=== PATIENT | male | born 1985 | race Caucasian/White ===

== ENCOUNTER 2016-11-14 03:23 | Emergency (ER) | payer OTHER ==
[2016-11-14] MEDS ORDERED: ACETAMINOPHEN TAB 325 MG TAB PO STA (03:48)
[2016-11-14] MEDS ORDERED: IBUPROFEN 400 MG TAB PO STA (03:48)
--- NOTE | 2016-11-14 04:20 | ED ---
Fever HPI - General Chief Complaint: Fever Stated Complaint: sun posioning Time Seen by Provider: 11/14/16 03:36 Source: patient Mode of arrival: ambulatory Limitations: no limitations - History of Present Illness Initial Comments: This patient is a 31-year-old man who presents to be evaluated for fever,chills , mild frontal headache, and body aches. These symptoms have been going on over the course of tonight. Patient is concerned that he may have "sun poisoning." He states that he had been out in the sun all day on Monday. The patient is denying other symptoms of infection, including no congestion or sore throat. No cough or dyspnea. No photophobia or neck stiffness. No abdominal pain, nausea, vomiting or diarrhea. No urinary symptoms or dysuria. No discharge. No rash. MD Complaint: fever -: hour(s) Temperature Source: subjective Associated Symptoms: chills, myalgias, headache Treatments Prior to Arrival: none - Related Data Home Medications Medication Instructions Recorded Confirmed Cetirizine HCl [Zyrtec] 10 mg PO DAILY PRN 05/30/16 11/14/16 Allergies Allergy/AdvReac Type Severity Reaction Status Date / Time No Known Allergies Allergy Verified 11/14/16 03:32 Review of Systems ROS Statement: Those systems with pertinent positive or pertinent negative responses have been documented in the HPI. ROS Other: All systems not noted in ROS Statement are negative. Constitutional: Reports: fever, chills. Denies: weakness Eyes: Denies: vision change ENT: Denies: ear pain, throat pain, congestion Respiratory: Denies: cough, dyspnea Cardiovascular: Denies: chest pain Gastrointestinal: Denies: abdominal pain, vomiting, diarrhea Genitourinary: Denies: dysuria, frequency, hematuria Musculoskeletal: Reports: myalgia Skin: Denies: rash Neurological: Reports: headache. Denies: weakness, numbness Past Medical History Past Medical History: No Reported History History of Any Multi-Drug Resistant Organisms: None Reported Past Surgical History: Tonsillectomy Past Psychological History: No Psychological Hx Reported Smoking Status: Former smoker Past Alcohol Use History: None Reported Past Drug Use History: None Reported General Exam Limitations: no limitations General appearance: alert, in no apparent distress Head exam: Present: atraumatic, normal inspection Eye exam: Present: normal appearance. Absent: scleral icterus, conjunctival injection ENT exam: Present: normal oropharynx, mucous membranes dry Neck exam: Present: normal inspection, full ROM, lymphadenopathy. Absent: tenderness, meningismus Respiratory exam: Present: normal lung sounds bilaterally. Absent: respiratory distress, wheezes, rales, rhonchi, stridor Cardiovascular Exam: Present: regular rate, normal rhythm, normal heart sounds. Absent: systolic murmur, diastolic murmur, rubs, gallop GI/Abdominal exam: Present: soft. Absent: distended, tenderness, guarding, rebound, mass Extremities exam: Present: normal inspection, normal capillary refill. Absent: pedal edema, calf tenderness Back exam: Present: normal inspection. Absent: CVA tenderness (R), CVA tenderness (L) Neurological exam: Present: alert Skin exam: Present: warm, dry, intact, normal color. Absent: rash Course Vital Signs 11/14/16 03:28 Temperature 101.9 F H Pulse Rate 105 H Respiratory 16 Rate Blood Pressure 138/85 O2 Sat by Pulse 96 Oximetry Medical Decision Making - Medical Decision Making At this point the patient does seem to have a viral syndrome and we discussed further treatment, including antipyretics and fluids. Did discuss warning signs and symptoms requiring immediate reevaluation, including signs and symptoms of but not limited to meningitis, pneumonia, appendicitis, urinary tract infection. Patient will follow-up to ensure resolution of symptoms, returning immediately if worsening in anyway - Lab Data Lab Results 11/14/16 Range/Units 03:39 Influenza Type A RNA Not Detected (Not Detectd) Influenza Type B (PCR) Not Detected (Not Detectd) Disposition Clinical Impression: Viral infection, Fever Disposition: HOME SELF-CARE Condition: Fair Instructions: Fever in Adults (ED) Referrals: None,Stated [Primary Care Provider] - 1-2 days Emily Cruz MD [REFERRING] - 1-2 days
[2016-11-14 04:35] VITALS: BP 133/67; PULSE 97; RESP 18; TEMP 101.5
== END 2016-11-14 04:31 | disposition home or self-care (01) ==
LOC: EC 03:23
DX: B34.9 Viral infection, unspecified (principal); Z87.891 Personal history of nicotine dependence
CPT/HCPCS: 87502; 99283

== ENCOUNTER 2016-11-15 10:15 | Inpatient (IN) | payer OTHER ==
[2016-11-15] MEDS ORDERED: ACETAMINOPHEN TAB 500 MG TAB PO STA (10:54)
[2016-11-15] MEDS ORDERED: IV VANCOMYCIN PER PHARMACY 1 EACH MISC MISCELLANE PRN (10:54)
[2016-11-15] MEDS ORDERED: AMPICILLIN-SULBACTAM 3 GM in SODIUM CHLORIDE 0.9% 100 ML IVPB STA (10:58)
--- NOTE | 2016-11-15 11:00 | ED ---
General Adult HPI - General Chief complaint: Fever Stated complaint: fever Time Seen by Provider: 11/15/16 10:41 Source: patient, family, RN notes reviewed Mode of arrival: ambulatory Limitations: no limitations - History of Present Illness Initial comments: Patient is a pleasant 31-year-old male presenting to emergency Department with fever. Onset was 2 days ago. Fever has been fairly constant despite ibuprofen. Patient was seen emergency department 2 days ago and told likely viral syndrome. Patient has had some nausea vomiting and diarrhea. No abdominal pain. has noticed some redness on the left upper chest that just started recently. Patient states this is very uncomfortable and hurts to move his left arm. - Related Data Home Medications Medication Instructions Recorded Confirmed Cetirizine HCl [Zyrtec] 10 mg PO DAILY PRN 05/30/16 11/15/16 Cholecalciferol [Vitamin D3] 1,000 unit PO DAILY 11/15/16 11/15/16 Ibuprofen [Motrin] 800 mg PO Q6HR PRN 11/15/16 11/15/16 Allergies Allergy/AdvReac Type Severity Reaction Status Date / Time No Known Allergies Allergy Verified 11/15/16 11:03 Review of Systems ROS Statement: Those systems with pertinent positive or pertinent negative responses have been documented in the HPI. ROS Other: All systems not noted in ROS Statement are negative. Constitutional: Reports: fever, chills Eyes: Denies: eye pain ENT: Denies: ear pain Respiratory: Denies: cough Cardiovascular: Reports: chest pain (Left upper chest, skin area) Endocrine: Reports: fatigue Gastrointestinal: Reports: nausea, vomiting, diarrhea. Denies: abdominal pain Genitourinary: Denies: dysuria Musculoskeletal: Denies: back pain Skin: Reports: rash Neurological: Denies: weakness Past Medical History Past Medical History: No Reported History History of Any Multi-Drug Resistant Organisms: None Reported Past Surgical History: Tonsillectomy Past Psychological History: No Psychological Hx Reported Smoking Status: Former smoker Past Alcohol Use History: None Reported Past Drug Use History: None Reported General Exam Limitations: no limitations General appearance: alert, in no apparent distress Head exam: Present: atraumatic Eye exam: Present: normal appearance, PERRL ENT exam: Present: normal oropharynx Neck exam: Present: normal inspection Respiratory exam: Present: normal lung sounds bilaterally, chest wall tenderness (Left upper chest wall) Cardiovascular Exam: Present: tachycardia GI/Abdominal exam: Present: soft. Absent: tenderness Extremities exam: Present: normal inspection Neurological exam: Present: alert Psychiatric exam: Present: normal affect, normal mood Skin exam: Present: rash (Left anterior upper chest wall with erythema consistent with cellulitis and swelling and tenderness.) Course Vital Signs 11/15/16 10:33 Temperature 101.5 F H Pulse Rate 122 H Respiratory 18 Rate Blood Pressure 101/63 O2 Sat by Pulse 97 Oximetry EKG Findings - EKG Comments: EKG Findings:: Sinus tachycardia 120. Normal intervals. Normal axis. Normal QRS. Nonspecific T waves. Medical Decision Making - Medical Decision Making Patient does meet severe sepsis criteria diagnosed at 12:16 PM. Case was discussed in detail with Dr. newman, who will admit for hospital call. Patient and family updated. Patient has been provided IV antibiotics. Admission orders written. - Lab Data Result diagrams: 11/15/16 11:12 11/15/16 11:12 Lab Results 11/15/16 11/15/16 11/15/16 Range/Units 11:12 11:12 11:12 WBC 11.2 H (3.8-10.6) k/uL RBC 4.71 (4.30-5.90) m/uL Hgb 13.9 (13.0-17.5) gm/dL Hct 38.3 L (39.0-53.0) % MCV 81.4 (80.0-100.0) fL MCH 29.6 (25.0-35.0) pg MCHC 36.4 (31.0-37.0) g/dL RDW 13.5 (11.5-15.5) % Plt Count 173 (150-450) k/uL Neutrophils % 92 % Lymphocytes % 3 % Monocytes % 3 % Eosinophils % 1 % Basophils % 0 % Neutrophils # 10.2 H (1.3-7.7) k/uL Lymphocytes # 0.3 L (1.0-4.8) k/uL Monocytes # 0.3 (0-1.0) k/uL Eosinophils # 0.1 (0-0.7) k/uL Basophils # 0.0 (0-0.2) k/uL PT (9.0-12.0) sec INR (<1.1) APTT (22.0-30.0) sec Sodium 132 L (137-145) mmol/L Potassium 3.6 (3.5-5.1) mmol/L Chloride 96 L (98-107) mmol/L Carbon Dioxide 20 L (22-30) mmol/L Anion Gap 16 mmol/L BUN 25 H (9-20) mg/dL Creatinine 1.57 H (0.66-1.25) mg/dL Est GFR (MDRD) Af Amer >60 (>60 ml/min/1.73 sqM) Est GFR (MDRD) Non-Af 52 (>60 ml/min/1.73 sqM) Glucose 122 H (74-99) mg/dL Plasma Lactic Acid Epifanio 2.4 H* (0.7-2.0) mmol/L Calcium 8.4 (8.4-10.2) mg/dL Total Bilirubin 3.7 H (0.2-1.3) mg/dL AST 52 (17-59) U/L ALT 76 H (21-72) U/L Alkaline Phosphatase 44 (38-126) U/L Total Protein 6.9 (6.3-8.2) g/dL Albumin 3.6 (3.5-5.0) g/dL 11/15/16 Range/Units 11:12 WBC (3.8-10.6) k/uL RBC (4.30-5.90) m/uL Hgb (13.0-17.5) gm/dL Hct (39.0-53.0) % MCV (80.0-100.0) fL MCH (25.0-35.0) pg MCHC (31.0-37.0) g/dL RDW (11.5-15.5) % Plt Count (150-450) k/uL Neutrophils % % Lymphocytes % % Monocytes % % Eosinophils % % Basophils % % Neutrophils # (1.3-7.7) k/uL Lymphocytes # (1.0-4.8) k/uL Monocytes # (0-1.0) k/uL Eosinophils # (0-0.7) k/uL Basophils # (0-0.2) k/uL PT 13.2 H (9.0-12.0) sec INR 1.3 (<1.1) APTT 26.5 (22.0-30.0) sec Sodium (137-145) mmol/L Potassium (3.5-5.1) mmol/L Chloride (98-107) mmol/L Carbon Dioxide (22-30) mmol/L Anion Gap mmol/L BUN (9-20) mg/dL Creatinine (0.66-1.25) mg/dL Est GFR (MDRD) Af Amer (>60 ml/min/1.73 sqM) Est GFR (MDRD) Non-Af (>60 ml/min/1.73 sqM) Glucose (74-99) mg/dL Plasma Lactic Acid Epifanio (0.7-2.0) mmol/L Calcium (8.4-10.2) mg/dL Total Bilirubin (0.2-1.3) mg/dL AST (17-59) U/L ALT (21-72) U/L Alkaline Phosphatase (38-126) U/L Total Protein (6.3-8.2) g/dL Albumin (3.5-5.0) g/dL - Radiology Data Radiology results: image reviewed (Chest x-ray shows no acute process) Critical Care Time Critical Care Time: Yes Total Critical Care Time: 34 Disposition Clinical Impression: Severe sepsis, Cellulitis Disposition: ADMITTED IP TO THIS [facility] Condition: Serious
[2016-11-15 11:27] LABS: Basophils % (A) 0 %; Eosinophils # (A) 0.1 k/uL (0-0.7); Eosinophils % (A) 1 %; HCT 38.3 % (39.0-53.0); HDW 3.08; HGB 13.9 gm/dL (13.0-17.5); Luc # (Auto) 0.15; Luc % (Auto) 1; Lymphocytes # (A) 0.3 k/uL (1.0-4.8); Lymphocytes % (A) 3 %; MCH 29.6 pg (25.0-35.0); MCHC 36.4 g/dL (31.0-37.0); MCV 81.4 fL (80.0-100.0); Mean Platelet Volume 6.9; Monocytes # (A) 0.3 k/uL (0-1.0); Monocytes % (A) 3 %; Neutrophils # (A) 10.2 k/uL (1.3-7.7); Neutrophils % (A) 92 %; RBC 4.71 m/uL (4.30-5.90); RDW 13.5 % (11.5-15.5); WBC 11.2 k/uL (3.8-10.6); WBC (Perox) 11.24
[2016-11-15 11:36] LABS: INR 1.3 (<1.1); Partial Thromboplastin Time 26.5 sec (22.0-30.0); Prothrombin Time 13.2 sec (9.0-12.0)
[2016-11-15 11:39] LABS: ALT 76 U/L (21-72); AST 52 U/L (17-59); Alkaline Phosphatase 44 U/L (38-126); Anion Gap 16 mmol/L; Blood Urea Nitrogen 25 mg/dL (9-20); Calcium 8.4 mg/dL (8.4-10.2); Carbon Dioxide 20 mmol/L (22-30); Chloride 96 mmol/L (98-107); Glucose 122 mg/dL (74-99); Non-African American GFR(MDRD) 52 (>60 ml/min/1.73 sqM); Potassium 3.6 mmol/L (3.5-5.1); Sodium 132 mmol/L (137-145); Total Bilirubin 3.7 mg/dL (0.2-1.3); Total Protein 6.9 g/dL (6.3-8.2)
[2016-11-15] MEDS ORDERED: VANCOMYCIN 1,750 MG in SODIUM CHLORIDE 0.9% 250 ML IVPB ONE (12:00)
--- NOTE | 2016-11-15 12:04 | XR ---
EXAMINATION TYPE: XR chest 2V DATE OF EXAM: 11/15/2016 11:55 AM COMPARISON: NONE HISTORY: Fever. TECHNIQUE: Frontal and lateral views of the chest are obtained. FINDINGS: Lateral view is suboptimal due to extremity overlap and patient's body habitus. There is n o focal air space opacity, pleural effusion, or pneumothorax seen. The cardiac silhouette size is wi thin normal limits. The osseous structures are intact. IMPRESSION: No suspicious acute air space opacity is clearly seen.
[2016-11-15] MEDS ORDERED: IBUPROFEN 400 MG TAB PO PRN (12:17)
[2016-11-15] MEDS ORDERED: NALOXONE 0.4 MG/ML 1 ML VIAL IV PRN (12:17)
[2016-11-15] MEDS: HYDROcodone/APAP 5-325MG 1 EACH TAB PO PRN ×2 (15:20→22:55)
[2016-11-15] MEDS: DOXYCYCLINE 100 MG in SODIUM CHLORIDE 0.9% 100 ML IVPB SCH ×2 (15:21→23:45)
[2016-11-15] MEDS: SODIUM CHLORIDE 0.9% 500 ML IV SCH ×2 (17:34→17:35)
[2016-11-15] MEDS: SODIUM CHLORIDE 0.9% 1,000 ML IV SCH ×4 (17:34→23:44)
--- NOTE | 2016-11-15 17:48 | P.HPIM ---
History of Present Illness H&P Date: 11/15/16 Chief Complaint: Rash on the chest This is a 31-year-old gentleman who is in good health until 4 days prior to admission. 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 Patient thereafter came to the hospital for ongoing evaluation was informed that is likely viral gastroenteritis and thereafter discharged home. Over the last few days patient continued to have chills and has been significantly weak and his oral intake has been decreased. Initial evaluation on the first ER visit patient did undergo a rapid flu which was negative At the time of the current admission and evaluation patient is complaining of this rash on his left side of the chest associated with significant tenderness and pain in his shoulder. Patient's who was at bedside stated that she also work with them and has a similar rash on her elbow and she apparently did have significant chills and fevers thereafter improved however. At the time of my evaluation patient states that he has chills generalized weakness and significant joint pains especially worse on his left shoulder Patient does state [place] multiple [place], 3 dogs cats and other farm animals. Review of Systems All systems: negative (Noted in HPI) Past Medical History Past Medical History: No Reported History History of Any Multi-Drug Resistant Organisms: None Reported Past Surgical History: Tonsillectomy Past Anesthesia/Blood Transfusion Reactions: No Reported Reaction Past Psychological History: No Psychological Hx Reported Additional Psychological History / Comment(s): Pt resides with his spouse and 3 children. He is independent. Smoking Status: Former smoker Past Alcohol Use History: None Reported Additional Past Alcohol Use History / Comment(s): Pt started smoking in 2005 and quit in 2007 Past Drug Use History: None Reported - Past Family History Father Family Medical History: Cancer Additional Family Medical History / Comment(s): Father has a pacemaker and melanoma. Mother Family Medical History: Diabetes Mellitus Medications and Allergies Home Medications Medication Instructions Recorded Confirmed Type Cetirizine HCl [Zyrtec] 10 mg PO DAILY PRN 05/30/16 11/15/16 History Cholecalciferol [Vitamin D3] 1,000 unit PO DAILY 11/15/16 11/15/16 History Ibuprofen [Motrin] 800 mg PO Q6HR PRN 11/15/16 11/15/16 History Allergies Allergy/AdvReac Type Severity Reaction Status Date / Time No Known Allergies Allergy Verified 11/15/16 11:03 Physical Exam Vitals: Vital Signs Temp Pulse Pulse Resp BP BP Pulse Ox 11/15/16 14:23 116 H 16 11/15/16 14:01 99.8 F H 116 H 16 111/63 95 11/15/16 13:06 101.2 F H 115 H 18 115/58 97 11/15/16 12:37 101.2 F H 115 H 18 115/58 97 Intake and Output 11/15/16 11/15/16 11/15/16 06:59 14:59 22:59 Other: # Voids 1 Physical exam Gen. appearance oriented 3 in no distress Neck is supple no JVD Lungs good air entry clear to auscultation no rhonchi or wheezing Heart S1-S2 heard regular rate and rhythm no murmurs appreciated Abdomen is soft nontender no organomegaly bowel sounds are intact Neurologically cranial nerves II-12 grossly intact no focal motor or sensory deficits noted Skin a large area of erythema appreciated on the left upper chest no significant fluid appreciated range of motion is affected on the left shoulder however no abnormalities on palpation of the shoulder. Results CBC & Chem 7: 11/15/16 11:12 11/15/16 11:12 Labs: Abnormal Lab Results - Last 24 Hours (Table) 11/15/16 Range/Units 14:37 Plasma Lactic Acid Epifanio 2.2 H* (0.7-2.0) mmol/L Thrombosis Risk Factor Assmnt - Choose All That Apply Any of the Below Risk Factors Present?: Yes Each Factor Represents 1 point: Obesity (BMI >25), Sepsis (< 1month) Other Risk Factors: No Other congenital or acquired thrombophilia - If yes, enter type in comment: No Thrombosis Risk Factor Assessment Total Risk Factor Score: 2 Thrombosis Risk Factor Assessment Level: Low Risk Assessment and Plan Plan: #1 fever of unknown origin #2 acute cellulitis of the left upper chest #3 acute diarrhea, attributed to viral gastroenteritis #4 acute kidney injury prerenal in etiology appears to be #5 lactic acidosis Plan Patient has significant tenderness in the left chest CPKs ordered. ESR will also be ordered. A UA needs to be done. If ESR and UA are significantly elevated. Needs to be concerning for systemic illness at this time. Patient does have lactic acidosis is likely due to dehydration will be given 2 L of crystalloids. A ID consultation will also be obtained as there is some concern over take for illnesses in this patient however the rash does not appear to be a target rash we'll start the patient on doxycycline and continue patient on Unasyn as well. Another rapid flu will also be done.
[2016-11-15] MEDS: AMPICILLIN-SULBACTAM 3 GM in SODIUM CHLORIDE 0.9% 100 ML IVPB SCH (17:51)
[2016-11-15 17:57] LABS: Amorphous Sediment,Urine Few /hpf; Appearance,Urine Turbid (Clear); Bacteria,Urine Rare /hpf; Bilirubin,Urine 1+ (Negative); Glucose,Urine (UA) 1+ (Negative); Granular Casts,Urine 21 /lpf (0); Ketones,Urine Negative (Negative); Leukocyte Esterase,Urine Negative (Negative); Mucus,Urine Rare /hpf; Nitrite,Urine Negative (Negative); Particle Count 26350; Protein,Urine 1+ (Negative); RBC,Urine 2 /hpf (0-5); Specific Gravity,Urine 1.019 (1.001-1.035); Squamous Epithelial Cell,Urine <1 /hpf (0-4); UA Billing (MACRO vs. MICRO) MICRO; Urobilinogen,Urine <2.0 mg/dL (<2.0); WBC,Urine 19 /hpf (0-5)
--- NOTE | 2016-11-15 21:46 | XR ---
EXAMINATION TYPE: XR shoulder complete LT DATE OF EXAM: 11/15/2016 8:04 PM COMPARISON: NONE HISTORY: Pain for 3 days without injury TECHNIQUE: 3 views FINDINGS: The bones and joints and soft tissues are unremarkable. IMPRESSION: No acute process. No focal findings.
[2016-11-15] MEDS: ACETAMINOPHEN TAB 325 MG TAB PO PRN (23:40)
[2016-11-16] MEDS: AMPICILLIN-SULBACTAM 3 GM in SODIUM CHLORIDE 0.9% 100 ML IVPB SCH ×2 (01:34→05:51)
[2016-11-16] MEDS ORDERED: VANCOMYCIN 1,750 MG in SODIUM CHLORIDE 0.9% 250 ML IVPB SCH (04:00)
[2016-11-16] MEDS: DOXYCYCLINE 100 MG in SODIUM CHLORIDE 0.9% 100 ML IVPB SCH (07:53)
[2016-11-16] MEDS: SODIUM CHLORIDE 0.9% 1,000 ML IV SCH ×2 (08:30→20:08)
[2016-11-16] MEDS ORDERED: RX INFO: IV CONTRAST WAS GIVEN 1 EACH MISC MISCELLANE PRN (10:10)
[2016-11-16] MEDS: ACETAMINOPHEN TAB 325 MG TAB PO PRN ×2 (10:30→17:27)
[2016-11-16 10:31] LABS: CH 29.1; CHCM 34.3; HCT 34.9 % (39.0-53.0); HDW 3.09; HGB 12.1 gm/dL (13.0-17.5); Immature Gran Flag Marked; MCH 29.6 pg (25.0-35.0); MCHC 34.6 g/dL (31.0-37.0); MCV 85.3 fL (80.0-100.0); Mean Platelet Volume 7.4; RBC 4.09 m/uL (4.30-5.90); RDW 13.6 % (11.5-15.5); WBC 7.1 k/uL (3.8-10.6); WBC (Perox) 7.86
[2016-11-16 10:39] LABS: Add Differential Manual Differential
[2016-11-16 10:43] LABS: Manual Review Performed; Nucleated Red Blood Cells 0 /100 WBC (0-0); Total Cells Counted 100
[2016-11-16 10:44] LABS: RBC Morphology Normal; Toxic Granulation Present
--- NOTE | 2016-11-16 10:49 | CONS ---
DATE OF CONSULTATION: 11/15/2016 REASON FOR CONSULTATION: Fever and a questionable viral syndrome. HISTORY OF PRESENT ILLNESS: Patient is a 31-year-old male, otherwise healthy presenting to the ER with chief complaints of fever. Apparently the patient said that he was working outside in the yard on Monday as it was a good beautiful day and has been lifting things heavy. The patient subsequently started having pain on left chest wall area and has difficulty moving his left arm. The patient also started having a fever with rigors or chills. With these symptoms, the patient presented to the [facility] ER where the patient was evaluated, has a diagnosis of possible viral syndrome. Patient was advised to take ibuprofen; however, the patient's symptoms did not improve. The patient started having nausea and vomiting and diarrhea with multiple loose stools. The patient denies having any significant abdominal pain on any blood or mucus in the stool with persistent pain. The patient presented to the [facility] ER where the patient has been evaluated by the ER physician. The patient did have a fever. He did have an elevated white count of 11.2. A chest x-ray reported negative. Left shoulder x-ray has been negative as well. The patient did receive a dose of vancomycin and Unasyn. Vancomycin was subsequently discontinued, doxycycline was added. I was asked to see the patient for further recommendation regarding antibiotic therapy. Patient noted to have erythema of the left chest wall area, which has been marked by the R.N. though the redness has improved by the time I evaluated the patient. REVIEW OF SYSTEMS: CONSTITUTIONAL: Positive for weakness along with a fever. EYES: No complaint. ENT: No complaint. RESPIRATORY: No complaint. CARDIOVASCULAR: No complaint. GENITOURINARY: No complaint. GASTROINTESTINAL: As per HPI. MUSCULOSKELETAL: As per HPI. INTEGUMENTARY: As per HPI. PSYCHOLOGIC: No complaint. ENDOCRINE: No complaint. NEUROLOGIC: No complaint. PAST MEDICAL HISTORY: No major illnesses. PAST SURGICAL HISTORY: Tonsillectomy. SOCIAL HISTORY: Did have history of smoking for a short duration. Quit a few years ago. Denies any drinking or drug use. Lives with his . FAMILY HISTORY: No significant finding noted. ALLERGIES: No known drug allergies. Medications currently include the patient is on Tylenol, [place], Unasyn, doxycycline, Motrin, Narcan. On examination, blood pressure is 111/63 with a pulse 113, temperature of 99.8. He is 95% on room air. General description is a middle-age male, lying in bed in no distress. No tachypnea or accessory muscle for respiration use. HEENT examination shows no pallor or scleral icterus. Oral mucous membrane is dry. NECK: Trachea central, no thyromegaly. LUNGS: Unlabored breathing. Clear to auscultation anteriorly. HEART: S1, S2 with regular rate and rhythm. ABDOMEN: Soft, no tenderness. No guarding or rigidity. EXTREMITIES: No edema of feet. Examination of the left chest wall, no erythema was appreciated though the area is tender to touch and the patient did have difficulty lifting his arm on the left side. NEUROLOGICAL: The patient is awake, alert and oriented. Mood and affect normal. LABS: Hemoglobin is 13.9, white count of 11.2 with a BUN of 25, creatinine is 1.57, lactic acid 2.4. Urine has been negative. Stool for C. diff was negative. Influenza A and B are negative. DIAGNOSTIC IMPRESSION AND PLAN: Patient admitted to the hospital with systemic inflammatory response syndrome/sepsis in a patient who did have a fever, elevated white count and lactic acid. He did have predominant GI symptoms which have been nonspecific enteritis. Patient did have a left chest wall pain and tenderness to touch and some erythema was noted; however, the erythema has resolved by the time I evaluated the patient. Questionable left chest wall cellulitis versus a hematoma or possible injury to the muscle while working hard on that weekend that seem to precipitated these symptoms. PLAN: 1. At this time, the patient will continue with Unasyn and doxy while waiting for the culture to finalize. 2. Obtain stool culture in addition to the C. difficile that is negative. 3. With the patient's symptom of left chest wall tenderness present, he will benefit from a CT of the chest wall to make sure there is no evidence of any hematoma or any tear to the muscles as well as the shoulder joint. 4. Will follow up on the clinical condition and culture to further adjust the medication if needed. Thank you for this consultation. Will follow this patient along with you. NISH
[2016-11-16] MEDS: CLINDAMYCIN 600 MG in DEXTROSE 5% IN WATER 50 ML IVPB SCH ×4 (10:52→15:55)
[2016-11-16 10:58] LABS: Calcium 7.7 mg/dL (8.4-10.2); Potassium 3.9 mmol/L (3.5-5.1); Total Bilirubin 2.4 mg/dL (0.2-1.3); Total Protein 5.7 g/dL (6.3-8.2)
[2016-11-16] MEDS ORDERED: SODIUM CHLORIDE 0.9% 500 ML IV ONE (11:09)
--- NOTE | 2016-11-16 11:49 | CT ---
EXAMINATION TYPE: CT chest wo con DATE OF EXAM: 11/16/2016 11:36 AM COMPARISON: NONE HISTORY: Lt chest wall hematoma vs abscess. Erythema and redness over chest. CT DLP: 842 mGycm. Automated Exposure Control for Dose Reduction was Utilized. TECHNIQUE: CT scan of the thorax is performed without IV contrast. FINDINGS: LUNGS: Exam is degraded by respiratory motion artifact makes evaluation for subcentimeter nodularity suboptimal. There is suspicious nodule in the anterior inferior medial right upper lobe measuring 1.4 x 1.2 cm that warrants follow-up. No suspicious groundglass opacity or consolidation is seen. No ple ural effusion or pneumothorax is present bilaterally. Tracheobronchial tree is patent. MEDIASTINUM: Lack of IV contrast is noted to limit evaluation for mediastinal and especially hilar ad enopathy. There are no definitive greater than 1 cm hilar or mediastinal lymph nodes. There are prom inent but subcentimeter paratracheal, subcarinal, and bilateral hilar lymph nodes. No cardiomegaly or pericardial effusion is seen. OTHER: Liver is diffusely low dense consistent with fatty infiltration. Liver is somewhat prominent. Dependent 4 mm density in gallbladder is consistent with small stone. Spleen is enlarged measuring 15 .2 cm on long axis on axial image 58. There is ill-defined fluid and fat stranding centered over the anterior left thorax beginning on axia l image 1 extending to level of diaphragm on axial image 50. This is centered over the left pectorali s muscle. Inflammatory change extends to the right of midline just past sternal level into the right supraclavicular region. There are prominent but benign-appearing reactive lymph nodes in the left axi lla noted. Some more focal ill-defined fluid adjacent adjacent to left lateral mid ribs are present. No well-formed thick-walled fluid collection or abscess is seen. IMPRESSION: 1. Marked soft tissue inflammatory change centered over the left anterior and lateral hemithorax. No well-formed thick-walled fluid collection or abscess is seen. Extension into the right chest and bila teral neck is noted. 2. Hepatosplenomegaly with fatty infiltration of liver. 3. A 1.4 x 1.2 cm nodule anterior inferior medial right upper lobe. Neoplasm cannot be excluded. PET/ CT correlation advised.
[2016-11-16] MEDS: CEFTAROLINE FOSAMIL 600 MG in SODIUM CHLORIDE 0.9% 250 ML IVPB SCH ×2 (11:56→20:08)
[2016-11-16 12:11] VITALS: BMI 36.8
[2016-11-16] MEDS: HYDROcodone/APAP 5-325MG 1 EACH TAB PO PRN ×2 (15:02→20:15)
[2016-11-16] MEDS ORDERED: SODIUM CHLORIDE 0.9% 1,000 ML IV ONE (15:10)
[2016-11-16] MEDS: ALBUTEROL NEBULIZED 2.5 MG/3 ML INHALATION PRN ×2 (15:14→20:29)
--- NOTE | 2016-11-16 16:36 | P.PN ---
Subjective This is a 31-year-old gentleman who is in good health until 4 days prior to admission. 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 Patient thereafter came to the hospital for ongoing evaluation was informed that is likely viral gastroenteritis and thereafter discharged home. Over the last few days patient continued to have chills and has been significantly weak and his oral intake has been decreased. Initial evaluation on the first ER visit patient did undergo a rapid flu which was negative At the time of the current admission and evaluation patient is complaining of this rash on his left side of the chest associated with significant tenderness and pain in his shoulder. Patient's who was at bedside stated that she also work with them and has a similar rash on her elbow and she apparently did have significant chills and fevers thereafter improved however. At the time of my evaluation patient states that he has chills generalized weakness and significant joint pains especially worse on his left shoulder Patient does state [place] with multiple [place], 3 dogs cats and other farm animals. 11/16/2016 Patient was evaluated by our infectious disease doctor as well. A CT of the chest was done there is some cellulitis without any concern for abscess. There is have hepatosplenomegaly that is also appreciated. I did discuss with the patient patient states that he states to be feeling about the same. Urine output is stable. Continues to have fevers chills no nausea vomiting. Decreased number of loose bowel movements are reported Objective - Vital Signs Vital signs: Vital Signs Temp 100.7 F H 11/16/16 15:00 Pulse 88 11/16/16 15:23 Resp 22 11/16/16 15:00 BP 114/71 11/16/16 15:00 Pulse Ox 95 11/16/16 15:00 Intake & Output 11/15/16 11/16/16 11/16/16 18:59 06:59 18:59 Intake Total 3400 240 Balance 3400 240 Weight 106.594 kg Intake: Intake, IV Titration 3400 Amount Ampicillin-Sulbactam 3 gm 2000 In Sodium Chloride 0.9% 100 ml @ 100 mls/hr IVPB Q6HR [facility] Rx#:[id number] Doxycycline 100 mg In 100 Sodium Chloride 0.9% 100 ml @ 66.67 mls/hr IVPB Q12HR [facility] Rx#:[id number] Sodium Chloride 0.9% 1, 200 000 ml @ 100 mls/hr IV . Q10H [facility] Rx#:[id number] Sodium Chloride 0.9% 500 100 ml @ 1000 mls/hr IV Q35M [facility] Rx#:[id number] Vancomycin 1,750 mg In 1000 Sodium Chloride 0.9% 250 ml @ 125 mls/hr IVPB ONCE [facility] Rx#:[id number] Oral 240 Other: Voiding Method Toilet # Voids 1 1 2 - Exam Physical exam Gen. appearance oriented 3 in no distress Neck is supple no JVD Lungs good air entry clear to auscultation no rhonchi or wheezing Heart S1-S2 heard regular rate and rhythm no murmurs appreciated Abdomen is soft nontender no organomegaly bowel sounds are intact Neurologically cranial nerves II-12 grossly intact no focal motor or sensory deficits noted Skin a diffuse tender rash is noted on the right upper chest and underneath his lower mid axillary region on the chest. This is new from last 24 hours - Labs CBC & Chem 7: 11/16/16 09:43 11/16/16 09:43 Labs: Abnormal Lab Results - Last 24 Hours (Table) 11/15/16 11/16/16 11/16/16 Range/Units 17:32 09:43 09:43 RBC 4.09 L (4.30-5.90) m/uL Hgb 12.1 L (13.0-17.5) gm/dL Hct 34.9 L (39.0-53.0) % Lymphocytes # (Manual) 0.4 L (1.0-4.8) k/uL Sodium 134 L (137-145) mmol/L Carbon Dioxide 20 L (22-30) mmol/L BUN 37 H (9-20) mg/dL Creatinine 1.93 H (0.66-1.25) mg/dL Calcium 7.7 L (8.4-10.2) mg/dL Total Bilirubin 2.4 H (0.2-1.3) mg/dL Alkaline Phosphatase 36 L (38-126) U/L Total Protein 5.7 L (6.3-8.2) g/dL Albumin 2.8 L (3.5-5.0) g/dL Urine Protein 1+ H (Negative) Urine Glucose (UA) 1+ H (Negative) Urine Blood Small H (Negative) Urine Bilirubin 1+ H (Negative) Urine WBC 19 H (0-5) /hpf Amorphous Sediment Few H (None) /hpf Urine Bacteria Rare H (None) /hpf Hyaline Casts 13 H (0-2) /lpf Urine Mucus Rare H (None) /hpf Urine Yeast (Budding) Occasional H (None) /hpf Microbiology - Last 24 Hours (Table) 11/15/16 17:32 Urine Culture - Preliminary Urine,Clean Catch 11/15/16 17:32 Stool Culture - Preliminary Stool Assessment and Plan Plan: #1 fever of unknown origin #2 acute cellulitis of the left upper chest #3 acute diarrhea, attributed to viral gastroenteritis #4 acute kidney injury prerenal in etiology appears to be #5 lactic acidosis Plan ESR is elevated. Patient's kidney function has worsened. There is proteinuria and hematuria that is noted in the UA as well. We'll obtain a urine protein to delineate amount of protein in the urine. Monitor urine output A nephrology consultation will also be obtained. Antibiotics were changed by infectious diseases. An autoimmune etiology is also to be worked up as there is no definite of reason for why the patient has this rash. tickborne illness is of the differential ecchymosis hence Borrelia IgM will also be ordered. We'll obtain a KAVON, c-ANCA and p-ANCA to ensure that this is not a systemic illness. There is no real episodes of hypotension that are noted UA does seem to show hyaline casts however there is some hematuria and proteinuria hence we' ll initiate a workup and have a manager union to evaluate the patient as well
--- NOTE | 2016-11-16 20:08 | PN ---
DATE OF SERVICE: 11/16/2016 REASON FOR FOLLOWUP: Fever and left chest wall cellulitis. INTERVAL HISTORY: The patient did have fever last night of 102.4. At the time of my evaluation this morning the patient was afebrile with temperature of 97. The patient's left chest wall redness is slightly more marked compared to yesterday. He is complaining of some dull aching pain in that site, about 3 to 4 out of 10, and no radiation. Patient denies having further nausea, vomiting or any diarrhea. Denies having any abdominal pain. On examination, blood pressure is 114/71 with a pulse of 92, temperature of 97. He is 95% on room air. General description is a young male up in the bed in no distress. HEENT EXAMINATION: No pallor or scleral icterus. LUNGS: Unlabored breathing. Clear to auscultation. HEART: S1, S2. Regular rate and rhythm. ABDOMEN: Soft. No tenderness. EXAMINATION OF THE LEFT CHEST WALL: The redness is slightly more pronounced today and is warm to touch as well as tender. No fluctuation or induration was noticed. LABS: Hemoglobin is 12.1. White count normalized to 7.1 with a BUN of 37, creatinine 1.93. Blood cultures remain negative. DIAGNOSTIC IMPRESSION AND PLAN: Patient with sepsis with likely left chest wall cellulitis with diffuse swelling and redness with a question of possible streptococcal disease. I did discuss the case in detail with the radiologist and did obtain a CT of the chest. Radiology recommended obtaining a CT with contrast; however, as his kidney function has slightly worsened, we did it without contrast. CT now showing evidence of swelling and cellulitis but no evidence of any drainable abscess. Patient's antibiotics have been adjusted to clindamycin and Teflaro to cover both for the MRSA as well as streptococcal infection to be the likely pathogen. Blood culture will be repeated and the patient will be monitored closely. Family was present at beside. Their questions and concerns were answered.
[2016-11-16 21:01] LABS: Sodium, Urine Random 28 mmol/L (30-90)
[2016-11-16] MEDS: CLINDAMYCIN 900 MG in DEXTROSE 5% IN WATER 50 ML IVPB SCH ×2 (23:20)
[2016-11-16] MEDS ORDERED: IBUPROFEN 600 MG TAB PO STA (23:36)
[2016-11-17] MEDS: SODIUM CHLORIDE 0.9% 1,000 ML IV SCH ×2 (06:16→07:19)
[2016-11-17] MEDS: CLINDAMYCIN 900 MG in DEXTROSE 5% IN WATER 50 ML IVPB SCH ×4 (07:19→14:50)
[2016-11-17] MEDS: CEFTAROLINE FOSAMIL 600 MG in SODIUM CHLORIDE 0.9% 250 ML IVPB SCH ×2 (08:17→22:22)
[2016-11-17 08:53] LABS: Basophils % (A) 0 %; CH 29.9; CHCM 34.2; Eosinophils # (A) 0.2 k/uL (0-0.7); Eosinophils % (A) 2 %; HCT 33.2 % (39.0-53.0); HGB 10.9 gm/dL (13.0-17.5); Luc # (Auto) 0.13; Luc % (Auto) 1; Lymphocytes # (A) 0.4 k/uL (1.0-4.8); Lymphocytes % (A) 4 %; MCH 28.9 pg (25.0-35.0); MCV 87.8 fL (80.0-100.0); Mean Platelet Volume 7.5; Monocytes # (A) 0.2 k/uL (0-1.0); Monocytes % (A) 1 %; Neutrophils # (A) 10.5 k/uL (1.3-7.7); Neutrophils % (A) 92 %; RBC 3.78 m/uL (4.30-5.90); RDW 14.3 % (11.5-15.5); WBC 11.5 k/uL (3.8-10.6); WBC (Perox) 11.45
[2016-11-17 09:28] LABS: ALT 64 U/L (21-72); AST 55 U/L (17-59); Alkaline Phosphatase 68 U/L (38-126); Anion Gap 11 mmol/L; Blood Urea Nitrogen 27 mg/dL (9-20); Calcium 8.2 mg/dL (8.4-10.2); Carbon Dioxide 21 mmol/L (22-30); Chloride 106 mmol/L (98-107); Glucose 122 mg/dL (74-99); Non-African American GFR(MDRD) 55 (>60 ml/min/1.73 sqM); Potassium 3.4 mmol/L (3.5-5.1); Sodium 138 mmol/L (137-145); Total Bilirubin 2.4 mg/dL (0.2-1.3); Total Protein 5.6 g/dL (6.3-8.2)
[2016-11-17] MEDS ORDERED: Potassium Replacement Protocol 1 EACH MISC MISCELLANE PRN (11:09)
[2016-11-17] MEDS: POTASSIUM CHLORIDE ER 20 MEQ TAB.ER PO SCH ×4 (11:32→18:29)
[2016-11-17] MEDS: ALBUTEROL NEBULIZED 2.5 MG/3 ML INHALATION PRN ×2 (12:05→19:33)
--- NOTE | 2016-11-17 13:42 | XR ---
EXAMINATION TYPE: XR chest 2V DATE OF EXAM: 11/17/2016 12:56 PM COMPARISON: 11/15/2016 TECHNIQUE: PA and lateral views submitted. HISTORY: Difficulty in breathing FINDINGS: The lungs are clear and there is no pneumothorax, pleural effusion, or focal pneumonia. IMPRESSION: 1. No acute process.
[2016-11-17] MEDS: HYDROcodone/APAP 5-325MG 1 EACH TAB PO PRN ×2 (14:03→20:51)
[2016-11-17 14:14] LABS: C-ANCA <1:20 Titer (<1:20); P-ANCA <1:20 Titer (<1:20)
--- NOTE | 2016-11-17 14:25 | CT ---
EXAMINATION TYPE: CT soft tissue neck wo con DATE OF EXAM: 11/17/2016 1:09 PM COMPARISON: NONE HISTORY: Swelling, redness to Lt side of chest and lower neck CT DLP: 793 mGycm CONTRAST: Patient injected with 0 mL of Omnipaque 300. TECHNIQUE: Axial images at 3 mm thick sections. Reconstructed images in the coronal plane and sagitt al plane are reviewed. FINDINGS: Limited CT sections are obtained the lung apices. The lung apices appear clear. CT neck: The torus tubarius and fossa of Rosenmuller are normal. Last Repairer Helper spaces are normal. Para nasal sinuses and mastoid air cells are clear. Parotid glands appear normal and symmetrical. Submandibular glands, are normal. There is some promi nent lymphadenopathy within the submandibular regions bilaterally. Posterior triangle small lymphaden opathy is present. There appears to be a 1.5 cm enlarged left jugulodigastric lymph node. Suspicious adenopathy within the jugulodigastric and carotid sheath regions is not otherwise evident. Parapharyn geal spaces are normal. No suspicious adenopathy is evident. The hypopharynx appears within normal limits. Vocal cord level appear symmetrical. Thyroid as visualized is normal. Soft tissue stranding is present at the level of the sternal notch. Edema infection could be consider ed. The anterior borders of the pectoralis muscles are indistinct. Some 1 cm enlarged supraclavicular adenopathy is present bilaterally. Left axillary adenopathy is partially within the [id number]. D eveloping pericardial effusion is not excluded Osseous structures are normal. IMPRESSIONS: 1. Scattered lymphadenopathy including left jugulodigastric region left axillary region and supraclav icular region. 2. Superficial subcutaneous edema and stranding. Differential diagnosis could include infection hemor rhage and edema.
[2016-11-17] MEDS: ACETAMINOPHEN TAB 325 MG TAB PO PRN (14:50)
[2016-11-17 15:20] LABS: Manual Review Performed; RBC Morphology Normal
--- NOTE | 2016-11-17 15:20 | P.NPCON ---
History of Present Illness - Reason for Consult acute renal failure - History of Present Illness Reason for consultation: Acute kidney injury History of present illness: Patient is a 31-year-old male seen in renal consultation for acute kidney injury. His creatinine peaked at 1.93 this admission and is down to 1.48 today. Patient presented with redness in his left chest and a temperature of 102F. Patient is also been taking high-dose NSAIDs for the last 3 days. He is currently maintained on IV antibiotics. A CT of the chest was done as well which did not suggest evidence of abscess. His creatinine in May 2016 was 1.3. Patient states at that time he had developed kidney stones. He denies any vomiting but states his appetite has been poor. He admits to good urine output. No hematuria or dysuria. Urinalysis suggestive of 1+ proteinuria with no significant red cells. He feels pain at the site of erythema but otherwise no other complaints at this time. Denies family history of renal disease. Vital signs are stable. General: The patient appeared well nourished and normally developed. HEENT: Head exam is unremarkable. Neck is without jugular venous distension. LUNGS: Lungs are clear to auscultation and percussion. Breath sounds decreased. Erythema of the left chest wall noted which is marked. HEART: Rate and Rhythm are regular. First and second heart sounds normal. No murmurs, rubs or gallops. ABDOMEN: Abdominal exam reveals normal bowel sounds. Non-tender and non- distended. No evidence of peritonitis. EXTREMITITES: No clubbing, cyanosis, or edema. Past Medical History Past Medical History: No Reported History History of Any Multi-Drug Resistant Organisms: None Reported Past Surgical History: Tonsillectomy Past Anesthesia/Blood Transfusion Reactions: No Reported Reaction Past Psychological History: No Psychological Hx Reported Additional Psychological History / Comment(s): Pt resides with his spouse and 3 children. He is independent. Smoking Status: Former smoker Past Alcohol Use History: None Reported Additional Past Alcohol Use History / Comment(s): Pt started smoking in 2005 and quit in 2007 Past Drug Use History: None Reported - Past Family History Father Family Medical History: Cancer Additional Family Medical History / Comment(s): Father has a pacemaker and melanoma. Mother Family Medical History: Diabetes Mellitus Medications and Allergies Home Medications Medication Instructions Recorded Confirmed Type Cetirizine HCl [Zyrtec] 10 mg PO DAILY PRN 10/24/16 04/11/17 History Cholecalciferol [Vitamin D3] 1,000 unit PO DAILY 11/15/16 11/15/16 History Ibuprofen [Motrin] 800 mg PO Q6HR PRN 11/15/16 11/15/16 History Allergies Allergy/AdvReac Type Severity Reaction Status Date / Time No Known Allergies Allergy Verified 11/15/16 11:03 Physical Exam Vitals: Vital Signs Temp Pulse Pulse Pulse Pulse Resp BP 11/17/16 12:16 100 11/17/16 12:05 104 H 11/17/16 08:00 20 11/17/16 07:00 96.8 F L 97 20 120/63 11/17/16 04:03 91 11/17/16 02:13 100.1 F H 113 H 11/16/16 23:00 101.7 F H 132 H 16 116/64 11/16/16 20:40 100 11/16/16 20:29 100 11/16/16 20:18 98.0 F 11/16/16 20:00 125 H 11/16/16 19:00 102.0 F H 11/16/16 17:28 102.9 F H 11/16/16 15:23 88 Pulse Ox 11/17/16 12:16 11/17/16 12:05 11/17/16 08:00 11/17/16 07:00 98 11/17/16 04:03 11/17/16 02:13 11/16/16 23:00 99 11/16/16 20:40 11/16/16 20:29 11/16/16 20:18 11/16/16 20:00 11/16/16 19:00 11/16/16 17:28 11/16/16 15:23 Intake and Output 11/17/16 11/17/16 11/17/16 06:59 14:59 22:59 Intake Total 240 Balance 240 Intake: Oral 240 Other: Voiding Method Toilet # Voids 2 Results - Lab Results Most recent lab results Calcium 8.2 mg/dL (8.4-10.2) L 11/17/16 08:36 11/17/16 08:36 11/17/16 08:36 Assessment and Plan Plan: Assessment: #1. Nonoliguric acute kidney injury mostly prerenal due to sepsis and use of NSAIDs. Rule out glomerulonephritis and AIN. Renal function improving with creatinine down to 1.4 today. Creatinine May 2016 was 1.3. #2. Left chest wall cellulitis. #3. Hypokalemia secondary to poor oral intake. #4. Questionable underlying chronic kidney disease. Creatinine on May 2016 was 1.3. Plan: Maintain normal saline to be run at 100 mL an hour. Replace potassium. Check magnesium level. Check serologic workup including ASO titer and ankle titers. KAVON noted to be negative. Check renal ultrasound. Antibiotics per infectious disease recommendations. Also check urine eosinophils. Avoid nephrotoxic agents and hypotensive episodes. Discontinue NSAIDs. Repeat electrolytes in the morning. Thank you for the consultation. I'll continue to follow patient with you during his hospital stay.
--- NOTE | 2016-11-17 15:25 | P.PN ---
Subjective This is a 31-year-old gentleman who is in good health until 4 days prior to admission. 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 Patient thereafter came to the hospital for ongoing evaluation was informed that is likely viral gastroenteritis and thereafter discharged home. Over the last few days patient continued to have chills and has been significantly weak and his oral intake has been decreased. Initial evaluation on the first ER visit patient did undergo a rapid flu which was negative At the time of the current admission and evaluation patient is complaining of this rash on his left side of the chest associated with significant tenderness and pain in his shoulder. Patient's who was at bedside stated that she also work with them and has a similar rash on her elbow and she apparently did have significant chills and fevers thereafter improved however. At the time of my evaluation patient states that he has chills generalized weakness and significant joint pains especially worse on his left shoulder Patient does state that [place] with multiple deer, 3 dogs cats and other farm animals. 11/16/2016 Patient was evaluated by our infectious disease doctor as well. A CT of the chest was done there is some cellulitis without any concern for abscess. There is have hepatosplenomegaly that is also appreciated. I did discuss with the patient patient states that he states to be feeling about the same. Urine output is stable. Continues to have fevers chills no nausea vomiting. Decreased number of loose bowel movements are reported 11/17/2016 Continues to have fevers. Patient states that his breathing is much more affected at this time. The rash has progressively gotten worse. States have 2-3 loose bowel movements the same period Objective - Vital Signs Vital signs: Vital Signs Temp 96.8 F L 11/17/16 07:00 Pulse 100 11/17/16 12:16 Resp 20 11/17/16 08:00 BP 120/63 11/17/16 07:00 Pulse Ox 98 11/17/16 07:00 Intake & Output 11/16/16 11/17/16 11/17/16 18:59 06:59 18:59 Intake Total 240 2420 240 Balance 240 2420 240 Weight 106.594 kg Intake: Intake, IV Titration 2200 Amount Ceftaroline Fosamil 600 250 mg In Sodium Chloride 0.9 % 250 ml @ 250 mls/hr IVPB Q12HR [facility] Rx#: [id number] Clindamycin 600 mg In 100 Dextrose 5% in Water 50 ml @ 100 mls/hr IVPB Q8HR [facility] Rx#:[id number] Doxycycline 100 mg In 100 Sodium Chloride 0.9% 100 ml @ 66.67 mls/hr IVPB Q12HR [facility] Rx#:[id number] Sodium Chloride 0.9% 1, 1000 000 ml @ 999 mls/hr IV . Q1H1M [facility] Rx#:[id number] Sodium Chloride 0.9% 500 500 ml @ 999 mls/hr IV .Q31M [facility] Rx#:[id number] Vancomycin 1,750 mg In 250 Sodium Chloride 0.9% 250 ml @ 125 mls/hr IVPB Q16H [facility] Rx#:[id number] Oral 240 220 240 Other: Voiding Method Toilet # Voids 2 2 - Exam Physical exam Gen. appearance oriented 3 in no distress Neck is supple no JVD Lungs good air entry clear to auscultation no rhonchi or wheezing Heart S1-S2 heard regular rate and rhythm no murmurs appreciated Abdomen is soft nontender no organomegaly bowel sounds are intact Neurologically cranial nerves II-12 grossly intact no focal motor or sensory deficits noted Skin a diffuse tender rash is noted on the right upper chest and underneath his lower mid axillary region on the chest has gotten worse - Labs CBC & Chem 7: 11/17/16 08:36 11/17/16 08:36 Labs: Abnormal Lab Results - Last 24 Hours (Table) 11/16/16 11/16/16 11/17/16 Range/Units 09:43 20:30 08:36 WBC 11.5 H (3.8-10.6) k/uL RBC 3.78 L (4.30-5.90) m/uL Hgb 10.9 L (13.0-17.5) gm/dL Hct 33.2 L (39.0-53.0) % Neutrophils # 10.5 H (1.3-7.7) k/uL Lymphocytes # 0.4 L (1.0-4.8) k/uL Potassium (3.5-5.1) mmol/L Carbon Dioxide (22-30) mmol/L BUN (9-20) mg/dL Creatinine (0.66-1.25) mg/dL Glucose (74-99) mg/dL Calcium (8.4-10.2) mg/dL Total Bilirubin (0.2-1.3) mg/dL C-Reactive Protein 544.9 H (<10.0) mg/L Total Protein (6.3-8.2) g/dL Albumin (3.5-5.0) g/dL Ur Random Sodium 28 L (30-90) mmol/L 11/17/16 Range/Units 08:36 WBC (3.8-10.6) k/uL RBC (4.30-5.90) m/uL Hgb (13.0-17.5) gm/dL Hct (39.0-53.0) % Neutrophils # (1.3-7.7) k/uL Lymphocytes # (1.0-4.8) k/uL Potassium 3.4 L (3.5-5.1) mmol/L Carbon Dioxide 21 L (22-30) mmol/L BUN 27 H (9-20) mg/dL Creatinine 1.48 H (0.66-1.25) mg/dL Glucose 122 H (74-99) mg/dL Calcium 8.2 L (8.4-10.2) mg/dL Total Bilirubin 2.4 H (0.2-1.3) mg/dL C-Reactive Protein (<10.0) mg/L Total Protein 5.6 L (6.3-8.2) g/dL Albumin 2.6 L (3.5-5.0) g/dL Ur Random Sodium (30-90) mmol/L Microbiology - Last 24 Hours (Table) 11/15/16 17:32 Urine Culture - Final Urine,Clean Catch 11/15/16 14:37 Blood Culture - Preliminary Blood No Growth after 24 hours Assessment and Plan Plan: #1 fever of unknown origin #2 acute cellulitis of the left upper chest #3 acute diarrhea, attributed to viral gastroenteritis #4 acute kidney injury prerenal in etiology appears to be #5 lactic acidosis #6 erythema migrans #7 acute hypoxic respiratory failure secondary to chest wall infection #8 right upper lobe mass #9.Diffuse Lymphadenopathy Plan Continue ongoing care. Discussed with the family that further lab testing for autoimmune disease R in progress. We'll need an consult recommendations from her lpc as well at this time. Renal function appears to be improved. Breathing appears to be more from chest wall tenderness. A CT of the neck will be done. Repeat chest x-ray will be ordered. Continue IV fluids. CRP is noted and is significantly elevated. A rheumatoid factor will also be obtained at this time. If patient continues to worsen may need to consider referral to an higher level of care as most of the autoimmune workup turnaround takes longer
[2016-11-17 16:27] LABS: Magnesium 2.3 mg/dL (1.6-2.3)
[2016-11-17 16:29] LABS: Rheumatoid Factor, Qnt 17 IU/mL (<12)
--- NOTE | 2016-11-17 16:47 | PN ---
DATE OF SERVICE: 11/17/2016 Reason for follow-up is fever and left chest wall cellulitis. HISTORY OF PRESENT ILLNESS: The patient did have another fever last night of 101.7. However, the patient is afebrile since then. The left chest wall swelling and redness slightly improved. The patient has some mild shortness of breath, but denies having any difficulty swallowing. No dysphagia and denies having any difficulty taking a deep breath. No cough. No abdominal pain. No nausea. No vomiting or any diarrhea. On examination, blood pressure is 120/63 with a pulse of 97, temperature 96.8. He is 98% on 2 liters nasal cannula. General description is a young male, lying in bed in no distress. HEENT EXAMINATION: No pallor or scleral icterus. Oral mucosa is dry. Oral cavity did not show any evidence of bad teeth or dentition. NECK: Trachea central. There is no thyromegaly. LUNGS: Unlabored breathing. Clear to auscultation. HEART: S1, S2. Regular rate and rhythm. ABDOMEN: Soft. No tenderness. Left-sided chest wall redness has slightly decreased. web machine tender to touch though. EXTREMITIES: No edema of the feet. LABS: Hemoglobin is 10.9, white count 11.5, BUN of 27 and creatinine is down to 1.48. His lactic acid is 1.5 normal. KAVON was negative. Blood culture has been negative so far. The patient did have a CT of the soft tissue of the neck which was reviewed with the radiologist and did show some scattered lymphadenopathy, superficial subcutaneous edema and stranding. The differential of infection, hemorrhage or edema. There was no compromise of the airway. I also reviewed his CT of the chest with Dr. Allred, which did show some subcutaneous inflammation and edema of the muscle but no evidence of any abscess formation. DIAGNOSTIC IMPRESSION AND PLAN: Patient with fever in a patient who did have swelling and redness of the left chest wall and the patient's symptoms started after he was working very hard in his yard taking the fence out and moving things around. Initial concern was possible muscle trauma from extensive work and there was some swelling of the muscle noticed on the left chest wall with subsequently inflamatory changes secondary to the same versus any new trauma. There is no skin breakdown. No evidence of any inflammation in the neck area. At this time we will keep the patient on Teflaro and clindamycin. Will re-evaluate the patient tomorrow. I discussed the case entirely with the family present at the bedside as well as with the attending physician. Continue supportive care. TRINID
[2016-11-17 18:04] LABS: Hepatitis B Surface Ag Index 0.06
[2016-11-17 18:10] LABS: Hepatitis B Core IgM Index 0.04
[2016-11-17] MEDS ORDERED: methylPREDNISolone SOD SUCCI 125 MG/2 ML VIAL IV STA (18:12)
[2016-11-17 18:22] LABS: Hepatitis C Virus IgG Index 0.02
[2016-11-17 18:23] LABS: Hepatitis C Virus IgG Ab Negative (Negative)
--- NOTE | 2016-11-17 18:46 | P.CONS ---
History of Present Illness - Reason for Consult Consult date: 11/17/16 Rule out autoimmune etiology for patient's symptoms Requesting physician: Misael Lee - Chief Complaint Rash and right shoulder pain/stiffness - History of Present Illness Patient is a pleasant 31-year-old male who has been consulted by rheumatology services to rule out possible autoimmune etiology of his symptoms. Patient reports that he was outside this past Monday doing some yard work with his . Patient mentions that he owns [address] land and there are various animals such as deer, dogs, cats and other animals in the area. He states that Monday morning he woke up and felt sore, assuming that this was due to the yard work that he had on the previous day. Patient states that he took ibuprofen, however his soreness became worse throughout the day. Patient states that Monday night his left arm started to bother him and he also had a fever at 102 F and he was up all night with diarrhea. Patient then went to the ER and after his flu swab was found to be negative, he was sent home and told to take ibuprofen and return if his symptoms worsened. Patient mentions that his symptoms did become worse and Monday night he had a fever, diarrhea, and vomiting. Patient return to the ER and he was admitted to the hospital for cellulitis. At that time, patient was unable to move his left shoulder due to stiffness and pain. Patient mentions that since Monday, the rash on his left shoulder has spread to his left axillary region and across his chest and he has also been feeling feverish, short of breath, and nauseous. Pt. does admit that his did have a similar rash on her right elbow over the weekend that seemed to subside on its own. Pt.'s father was at pt.'s bedside this evening. Upon speaking with the patient today, he denies any recent travel history, recollection of any insect bite, illicit drug use, dental abscess, or additional medications or medical issues that might cause him to be immunocompromised. He also denies any history of a prior episode resembling his current symptoms. Review of Systems All systems: negative Constitutional: Reports chills, Reports fever, Reports poor appetite, Reports weakness Eyes: denies blurred vision, denies pain Ears, nose, mouth and throat: Reports headache, Denies sore throat Cardiovascular: Reports shortness of breath, Denies chest pain Respiratory: Denies cough Gastrointestinal: Reports diarrhea, Reports nausea, Denies abdominal pain, Denies vomiting Musculoskeletal: Reports neck pain (left sided ), Reports neck stiffness (left sided) Musculoskeletal: left: shoulder pain Integumentary: Reports rash, Denies pruritus Neurological: Reports weakness, Denies numbness Psychiatric: Denies anxiety, Denies depression Endocrine: Denies fatigue, Denies weight change Past Medical History Past Medical History: No Reported History History of Any Multi-Drug Resistant Organisms: None Reported Past Surgical History: Tonsillectomy Past Anesthesia/Blood Transfusion Reactions: No Reported Reaction Past Psychological History: No Psychological Hx Reported Additional Psychological History / Comment(s): Pt resides with his spouse and 3 children. He is independent. Smoking Status: Former smoker Past Alcohol Use History: None Reported Additional Past Alcohol Use History / Comment(s): Pt started smoking in 2005 and quit in 2007 Past Drug Use History: None Reported - Past Family History Father Family Medical History: Cancer Additional Family Medical History / Comment(s): Father has a pacemaker and melanoma. Denies any family history of autoimmune conditions. Mother Family Medical History: Diabetes Mellitus Medications and Allergies Home Medications Medication Instructions Recorded Confirmed Type Cetirizine HCl [Zyrtec] 10 mg PO DAILY PRN 05/30/16 11/15/16 History Cholecalciferol [Vitamin D3] 1,000 unit PO DAILY 11/15/16 11/15/16 History Ibuprofen [Motrin] 800 mg PO Q6HR PRN 11/15/16 11/15/16 History Allergies Allergy/AdvReac Type Severity Reaction Status Date / Time No Known Allergies Allergy Verified 11/15/16 11:03 Physical Exam Vitals: Vital Signs Temp Pulse Pulse Pulse Pulse Resp BP 11/17/16 16:00 20 11/17/16 15:00 101.8 F H 116 H 20 135/75 11/17/16 12:16 100 11/17/16 12:05 104 H 11/17/16 08:00 20 11/17/16 07:00 96.8 F L 97 20 120/63 11/17/16 04:03 91 11/17/16 02:13 100.1 F H 113 H 11/16/16 23:00 101.7 F H 132 H 16 116/64 11/16/16 20:40 100 11/16/16 20:29 100 11/16/16 20:18 98.0 F 11/16/16 20:00 125 H 11/16/16 19:00 102.0 F H Pulse Ox 11/17/16 16:00 11/17/16 15:00 100 11/17/16 12:16 11/17/16 12:05 11/17/16 08:00 11/17/16 07:00 98 11/17/16 04:03 11/17/16 02:13 11/16/16 23:00 99 11/16/16 20:40 11/16/16 20:29 11/16/16 20:18 11/16/16 20:00 11/16/16 19:00 Intake and Output 11/17/16 11/17/16 11/17/16 06:59 14:59 22:59 Intake Total 240 Balance 240 Intake: Oral 240 Other: Voiding Method Toilet Toilet # Voids 2 2 - Constitutional General appearance: no acute distress - EENT Eyes: EOMI - Neck Neck: normal ROM (limited ROM ) - Respiratory Respiratory: bilateral: CTA - Cardiovascular Rhythm: regular Heart sounds: normal: S1, S2 - Gastrointestinal General gastrointestinal: organomegaly, soft, no tenderness - Integumentary Integumentary: cellulitis (anterior chest wall extending into left shoulder and left axillary region) - Neurologic Neurologic: CNII-XII intact - Musculoskeletal Musculoskeletal: generalized weakness - Psychiatric Psychiatric: A&O x's 3 Results CBC & Chem 7: 11/17/16 08:36 11/17/16 15:52 Labs: Abnormal Lab Results - Last 24 Hours (Table) 11/16/16 11/16/16 11/17/16 Range/Units 09:43 20:30 08:36 WBC 11.5 H (3.8-10.6) k/uL RBC 3.78 L (4.30-5.90) m/uL Hgb 10.9 L (13.0-17.5) gm/dL Hct 33.2 L (39.0-53.0) % Neutrophils # 10.5 H (1.3-7.7) k/uL Lymphocytes # 0.4 L (1.0-4.8) k/uL Potassium (3.5-5.1) mmol/L Carbon Dioxide (22-30) mmol/L BUN (9-20) mg/dL Creatinine (0.66-1.25) mg/dL Glucose (74-99) mg/dL Calcium (8.4-10.2) mg/dL Ferritin (18-464) ng/mL Total Bilirubin (0.2-1.3) mg/dL C-Reactive Protein 544.9 H (<10.0) mg/L Total Protein (6.3-8.2) g/dL Albumin (3.5-5.0) g/dL Ur Random Sodium 28 L (30-90) mmol/L Rheumatoid Factor (<12) IU/mL 11/17/16 11/17/16 11/17/16 Range/Units 08:36 15:52 15:52 WBC (3.8-10.6) k/uL RBC (4.30-5.90) m/uL Hgb (13.0-17.5) gm/dL Hct (39.0-53.0) % Neutrophils # (1.3-7.7) k/uL Lymphocytes # (1.0-4.8) k/uL Potassium 3.4 L 3.3 L (3.5-5.1) mmol/L Carbon Dioxide 21 L (22-30) mmol/L BUN 27 H (9-20) mg/dL Creatinine 1.48 H (0.66-1.25) mg/dL Glucose 122 H (74-99) mg/dL Calcium 8.2 L (8.4-10.2) mg/dL Ferritin 928 H (18-464) ng/mL Total Bilirubin 2.4 H (0.2-1.3) mg/dL C-Reactive Protein (<10.0) mg/L Total Protein 5.6 L (6.3-8.2) g/dL Albumin 2.6 L (3.5-5.0) g/dL Ur Random Sodium (30-90) mmol/L Rheumatoid Factor 17 H (<12) IU/mL Microbiology - Last 24 Hours (Table) 11/15/16 14:37 Blood Culture - Preliminary Blood No Growth after 48 hours 11/15/16 17:32 Urine Culture - Final Urine,Clean Catch Assessment and Plan Plan: 1. fever of unknown origin 2. cellulitis 3. acute diarrhea 4. left shoulder pain 5. lymphadenopathy 6. acute kidney injury Prior to seeing the patient today, he did have some autoimmune labs drawn including an ANCA panel, KAVON, and a rheumatoid factor. His rheumatoid factor was mildly positive at 17 and his ANCA panel and KAVON were found to be negative. Pt. also had a chest CT done that did not reveal any concerns for possible connective tissue disease or vasculitis. It did however reveal hepatosplenomegaly, cellulitis, and a suspicious lung nodule. Pt.'s extremely elevated CRP and hematology panel do point more towards an acute infectious etiology. Based on patient's history and physical examination, an autoimmune condition seems unlikely at this time and his symptoms seem to be infectious in nature. Dr. Marte did come in and speak with the patient and she does agree that infection is most likely the cause since patient's presentation is unusual for rheumatoid arthritis or vasculitis. Today on physical examination, no additional joint pain/swelling was noted other than in patient's left shoulder. Patient's rash did not appear to be concerning for vasculitis or additional connective tissue disease and it appeared more consistent with cellulitis. At this time, no additional serologies are necessary. Dr. Marte also did speak with Dr. Lee who agreed that a short course of steroids for symptomatic relief would benefit the patient. Patient will be given a bolus of Solu-Medrol 120 mg he will then receive 60 mg every 6 hours. Adjustments to this will be made by Dr. Lee. The patient was seen and examined by Dr. Marte and pt.'s plan of care was discussed with and agreed upon by Dr. Marte. Time with Patient: Greater than 30
[2016-11-17 22:16] LABS: Glucose,Whole Blood 146 mg/dL (75-99)
[2016-11-17] MEDS: INSULIN LISPRO (humaLOG) 300 UNIT/3 ML VIAL SQ SCH (22:21)
[2016-11-18] MEDS ORDERED: DEXTROSE 5% IN WATER 50 ML BAG ONE (01:05)
[2016-11-18] MEDS ORDERED: CLINDAMYCIN 150 MG/ML 6 ML VIAL ONE (01:05)
[2016-11-18] MEDS ORDERED: methylPREDNISolone SOD SUCCI 125 MG/2 ML VIAL ONE (01:05)
[2016-11-18] MEDS: methylPREDNISolone SOD SUCCI 125 MG/2 ML VIAL IV SCH ×3 (06:07→12:39)
[2016-11-18] MEDS: CLINDAMYCIN 900 MG in DEXTROSE 5% IN WATER 50 ML IVPB SCH ×8 (06:07→23:46)
[2016-11-18] MEDS: SODIUM CHLORIDE 0.9% 1,000 ML IV SCH ×3 (06:17→20:43)
[2016-11-18] MEDS: ALBUTEROL NEBULIZED 2.5 MG/3 ML INHALATION PRN ×4 (07:20→20:56)
[2016-11-18 09:12] LABS: Basophils % (A) 0 %; CH 29.6; CHCM 34.7; Eosinophils % (A) 0 %; HCT 32.4 % (39.0-53.0); HDW 3.32; HGB 10.8 gm/dL (13.0-17.5); Luc # (Auto) 0.14; Luc % (Auto) 1; Lymphocytes # (A) 0.8 k/uL (1.0-4.8); Lymphocytes % (A) 6 %; MCH 28.6 pg (25.0-35.0); MCHC 33.2 g/dL (31.0-37.0); Mean Platelet Volume 7.3; Monocytes # (A) 0.3 k/uL (0-1.0); Monocytes % (A) 2 %; Neutrophils # (A) 13.6 k/uL (1.3-7.7); Neutrophils % (A) 92 %; RBC 3.77 m/uL (4.30-5.90); RDW 14.2 % (11.5-15.5); WBC 14.8 k/uL (3.8-10.6); WBC (Perox) 14.75
[2016-11-18] MEDS: CEFTAROLINE FOSAMIL 600 MG in SODIUM CHLORIDE 0.9% 250 ML IVPB SCH ×2 (09:12→20:42)
[2016-11-18] MEDS: INSULIN LISPRO (humaLOG) 300 UNIT/3 ML VIAL SQ SCH ×5 (09:14→21:41)
--- NOTE | 2016-11-18 09:24 | US ---
EXAMINATION TYPE: US abdomen complete DATE OF EXAM: 11/18/2016 8:32 AM COMPARISON: CT on PACS CLINICAL HISTORY: splenomegaly. EXAM MEASUREMENTS: Liver Length: 18.7 cm Gallbladder Wall: 0.3 cm CBD: 0.4 cm Spleen: 12.4 cm Right Kidney: 14.6 x 5.8 x 5.7 cm Left Kidney: 16.1 x 6.3 x 6.1 cm Pancreas: Tail obscured by overlying bowel gas Liver: Increased attenuation, areas of focal sparing near GB. Large in size. Gallbladder: Mobile gallstones Evidence for sonographic Caballero's sign: no CBD: wnl Spleen: large in size Right Kidney: Large in size. Hypoechoic area lateral, lower pole = 2.5 x 2.0 x 2.1 cm ? cyst Left Kidney: wnl, Large in size Upper IVC: wnl Abd Aorta: wnl Limited views of the pancreas are normal. The liver is enlarged measuring 18.7 cm. There are stones within the gallbladder. The gallbladder wall measures 3 mm. The distal common hepati c duct measures 4 mm. The spleen is normal in size. The left kidney is normal. There is a 2.5 cm hypoechoic lesion in the upper pole of the right kidney. This does not meet the requirements of a simple cyst. A CT scan without contrast dated 05/30/2016 sh owed this vague area be solid. Visualized portions of aorta and IVC are unremarkable. IMPRESSION: 1. CHOLELITHIASIS. 2. 2.5 CM LESION LATERALLY WITHIN THE RIGHT KIDNEY DOES NOT REPRESENT A SIMPLE CYST. FURTHER IMAGING WITH POSTCONTRAST CT OR MR WOULD BE SUGGESTED. 3. HEPATOMEGALY.
[2016-11-18 09:27] LABS: Glucose,Whole Blood 143 mg/dL (75-99)
[2016-11-18 09:29] LABS: ALT 68 U/L (21-72); AST 64 U/L (17-59); Alkaline Phosphatase 78 U/L (38-126); Anion Gap 12 mmol/L; Blood Urea Nitrogen 29 mg/dL (9-20); Calcium 8.7 mg/dL (8.4-10.2); Carbon Dioxide 19 mmol/L (22-30); Chloride 108 mmol/L (98-107); Glucose 152 mg/dL (74-99); Magnesium 2.4 mg/dL (1.6-2.3); Non-African American GFR(MDRD) >60 (>60 ml/min/1.73 sqM); Potassium 3.8 mmol/L (3.5-5.1); Sodium 139 mmol/L (137-145); Total Bilirubin 1.6 mg/dL (0.2-1.3); Total Protein 5.8 g/dL (6.3-8.2)
--- NOTE | 2016-11-18 11:39 | PN ---
Patient is seen for followup for acute kidney injury secondary to NSAIDs and some degree of hypovolemia as well. Patient has been maintained on IV fluids. His renal function has improved with actually this morning his creatinine is down to 1.16. Patient is comfortable. He states he is feeling better. On examination, blood pressure is 142/84, heart rate 88 per minute. He is afebrile. Examination of the heart, S1 and S2. Examination of the lungs, bilateral breath sounds are heard. Abdomen is soft, nontender. Examination of the lower extremities shows no significant edema. Labs show sodium 139, potassium 3.8, BUN 29, serum creatinine 1.16. Hemoglobin 10.8 g/dL. ASSESSMENT: 1. Acute kidney injury secondary to hypovolemia and also from NSAIDs, currently significantly improved. Continue with IV fluids. 2. Left chest wall cellulitis, maintained on clindamycin. 3. History of nephrolithiasis. 4. Hypokalemia, status post replacement. 5. Microscopic hematuria, possibly related to the NSAIDs and recent acute kidney injury. Will follow up as outpatient. PLAN: Continue IV fluids. Patient is advised to continue to avoid the use of NSAIDs, even as outpatient. His renal function is currently significantly improved. We will see him for followup as outpatient.
[2016-11-18 11:49] LABS: Glucose,Whole Blood 148 mg/dL (75-99)
[2016-11-18 12:05] LABS: Hemoglobin A1C 5.1 % (4.2-6.1)
[2016-11-18] MEDS: HYDROcodone/APAP 5-325MG 1 EACH TAB PO PRN (12:45)
[2016-11-18 17:06] LABS: Glucose,Whole Blood 183 mg/dL (75-99)
--- NOTE | 2016-11-18 17:08 | PN ---
DATE OF SERVICE: 11/18/2016 REASON FOR FOLLOWUP: Left chest wall cellulitis with sepsis. INTERVAL HISTORY: The patient overall feels better and has improved. Last fever he had was yesterday afternoon around 3. No fever recorded since then. In the meantime, the patient has been evaluated by Rheumatology. They have ruled out any rheumatologic disorder but advised steroids. The patient is currently getting Solu-Medrol 60 q.6. Patient's left chest wall swelling and redness have slightly improved. Pain is improved. Still complaining of some difficulty breathing and very minimal dry cough. No abdominal pain. Did have about 3 loose stools since morning. On examination, blood pressure 142/84 with a pulse of 88, temperature 98.6. He is 97% on 2 L nasal cannula. General description is a young male lying in bed in no distress. HEENT EXAMINATION: Slight pallor. No scleral icterus. Oral mucous membrane dry. LUNGS: Unlabored breathing. Clear to auscultation. No wheeze or crackle. HEART: S1, S2. Regular rate and rhythm. ABDOMEN: Soft. No tenderness. EXTREMITIES: No edema of feet. EXAMINATION OF LEFT CHEST WALL: Overall swelling and redness have decreased in intensity. Swelling and redness around the neck area have resolved compared to yesterday. LABS: Hemoglobin is 10.8, white count of 14.8 with a BUN of 29, creatinine 1.16. Blood culture remains negative. DIAGNOSTIC IMPRESSION AND PLAN: Patient with sepsis. Source is likely left chest wall cellulitis in a patient who did have an extensive workup for other etiologies that was negative. No evidence of any abscess formation. He is responding to the Teflaro and clindamycin. That will be continued at this point. Recommend cutting back on steroids in view of the active infection to prevent it from getting any worse. This was discussed in detail with the attending physician, and maybe try Toradol for the pain and anti-inflammatory properties with consent of Nephrology. His was present at beside. Questions and concerns were answered. As far as his diarrhea, the patient will begin Questran and has been encouraged to take yogurt with each meal. If diarrhea persists or worsens, will check a stool for C difficile and treat if positive. NISH
[2016-11-18] MEDS: KETOROLAC 30 MG/ML 1 ML VIAL IVP SCH ×2 (17:26→23:46)
[2016-11-18] MEDS: CHOLESTYRAMINE (WITH SUGAR) 4 GM PACKET PO SCH (17:29)
--- NOTE | 2016-11-18 18:01 | P.PN ---
Subjective This is a 31-year-old gentleman who is in good health until 4 days prior to admission. 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 Patient thereafter came to the hospital for ongoing evaluation was informed that is likely viral gastroenteritis and thereafter discharged home. Over the last few days patient continued to have chills and has been significantly weak and his oral intake has been decreased. Initial evaluation on the first ER visit patient did undergo a rapid flu which was negative At the time of the current admission and evaluation patient is complaining of this rash on his left side of the chest associated with significant tenderness and pain in his shoulder. Patient's who was at bedside stated that she also work with them and has a similar rash on her elbow and she apparently did have significant chills and fevers thereafter improved however. At the time of my evaluation patient states that he has chills generalized weakness and significant joint pains especially worse on his left shoulder Patient does state [place], 3 dogs cats and other farm animals. 11/16/2016 Patient was evaluated by our infectious disease doctor as well. A CT of the chest was done there is some cellulitis without any concern for abscess. There is have hepatosplenomegaly that is also appreciated. I did discuss with the patient patient states that he states to be feeling about the same. Urine output is stable. Continues to have fevers chills no nausea vomiting. Decreased number of loose bowel movements are reported 11/17/2016 Continues to have fevers. Patient states that his breathing is much more affected at this time. The rash has progressively gotten worse. States have 2-3 loose bowel movements the same period 11/18/16 states to be doing well no fevers, chills. breathing is improved states to have a cough slept well overnight. Objective - Vital Signs Vital signs: Vital Signs Temp 97.6 F 11/18/16 15:00 Pulse 72 11/18/16 17:40 Resp 26 H 11/18/16 17:40 BP 146/101 11/18/16 15:00 Pulse Ox 97 11/18/16 15:15 Intake & Output 11/17/16 11/18/16 11/18/16 18:59 06:59 18:59 Intake Total 240 160 400 Balance 240 160 400 Intake: Oral 240 160 400 Other: Voiding Method Toilet Toilet Toilet # Voids 2 1 3 # Bowel Movements 0 - Exam Physical exam Gen. appearance oriented 3 in no distress Neck is supple no JVD Lungs good air entry clear to auscultation no rhonchi or wheezing Heart S1-S2 heard regular rate and rhythm no murmurs appreciated Abdomen is soft nontender no organomegaly bowel sounds are intact Neurologically cranial nerves II-12 grossly intact no focal motor or sensory deficits noted Skin a diffuse tender rash is noted on the right upper chest and underneath his lower mid axillary region on the chest , improved, less tender to touch.. - Labs CBC & Chem 7: 11/18/16 08:41 11/18/16 08:41 Labs: Abnormal Lab Results - Last 24 Hours (Table) 11/17/16 11/17/16 11/17/16 Range/Units 08:36 15:52 22:12 WBC 11.5 H (3.8-10.6) k/uL RBC 3.78 L (4.30-5.90) m/uL Hgb 10.9 L (13.0-17.5) gm/dL Hct 33.2 L (39.0-53.0) % Neutrophils # 10.5 H (1.3-7.7) k/uL Lymphocytes # 0.4 L (1.0-4.8) k/uL Chloride (98-107) mmol/L Carbon Dioxide (22-30) mmol/L BUN (9-20) mg/dL Glucose (74-99) mg/dL POC Glucose (mg/dL) 146 H (75-99) mg/dL Magnesium (1.6-2.3) mg/dL Ferritin 928 H (18-464) ng/mL Total Bilirubin (0.2-1.3) mg/dL AST (17-59) U/L Creatine Kinase (55-170) U/L Total Protein (6.3-8.2) g/dL Albumin (3.5-5.0) g/dL Rheumatoid Factor 17 H (<12) IU/mL 11/17/16 11/18/16 11/18/16 Range/Units 22:15 08:41 08:41 WBC 14.8 H (3.8-10.6) k/uL RBC 3.77 L (4.30-5.90) m/uL Hgb 10.8 L (13.0-17.5) gm/dL Hct 32.4 L (39.0-53.0) % Neutrophils # 13.6 H (1.3-7.7) k/uL Lymphocytes # 0.8 L (1.0-4.8) k/uL Chloride 108 H (98-107) mmol/L Carbon Dioxide 19 L (22-30) mmol/L BUN 29 H (9-20) mg/dL Glucose 152 H (74-99) mg/dL POC Glucose (mg/dL) (75-99) mg/dL Magnesium 2.4 H (1.6-2.3) mg/dL Ferritin (18-464) ng/mL Total Bilirubin 1.6 H (0.2-1.3) mg/dL AST 64 H (17-59) U/L Creatine Kinase 49 L (55-170) U/L Total Protein 5.8 L (6.3-8.2) g/dL Albumin 2.7 L (3.5-5.0) g/dL Rheumatoid Factor (<12) IU/mL 11/18/16 11/18/16 11/18/16 Range/Units 09:25 11:45 17:01 WBC (3.8-10.6) k/uL RBC (4.30-5.90) m/uL Hgb (13.0-17.5) gm/dL Hct (39.0-53.0) % Neutrophils # (1.3-7.7) k/uL Lymphocytes # (1.0-4.8) k/uL Chloride (98-107) mmol/L Carbon Dioxide (22-30) mmol/L BUN (9-20) mg/dL Glucose (74-99) mg/dL POC Glucose (mg/dL) 143 H 148 H 183 H (75-99) mg/dL Magnesium (1.6-2.3) mg/dL Ferritin (18-464) ng/mL Total Bilirubin (0.2-1.3) mg/dL AST (17-59) U/L Creatine Kinase (55-170) U/L Total Protein (6.3-8.2) g/dL Albumin (3.5-5.0) g/dL Rheumatoid Factor (<12) IU/mL Microbiology - Last 24 Hours (Table) 11/15/16 14:37 Blood Culture - Preliminary Blood No Growth after 72 hours 11/15/16 17:32 Stool Culture - Final Stool 11/16/16 20:22 Blood Culture - Preliminary Blood No Growth after 24 hours 11/16/16 20:04 Blood Culture - Preliminary Blood No Growth after 24 hours Assessment and Plan Plan: #1 fever of unknown origin #2 acute cellulitis of the left upper chest #3 acute diarrhea, attributed to viral gastroenteritis #4 acute kidney injury prerenal in etiology appears to be #5 lactic acidosis #6 erythema migrans #7 acute hypoxic respiratory failure secondary to chest wall infection #8 right upper lobe mass #9.Diffuse Lymphadenopathy Plan results for autoimmune workup are negative burst of steroids were given pt improved add toradol , moniter renal function will likely obtain a ct chest with contrast to eval the nodule in the right upper lobe if renal function is stable renal function is improving overall improvement encourage ambulation IS
[2016-11-18 21:35] LABS: Glucose,Whole Blood 148 mg/dL (75-99)
[2016-11-19] MEDS: SODIUM CHLORIDE 0.9% 1,000 ML IV SCH ×2 (06:04→17:17)
[2016-11-19] MEDS: KETOROLAC 30 MG/ML 1 ML VIAL IVP SCH ×4 (06:04→23:55)
[2016-11-19] MEDS: ALBUTEROL NEBULIZED 2.5 MG/3 ML INHALATION PRN ×3 (06:50→20:50)
[2016-11-19 07:31] LABS: Glucose,Whole Blood 118 mg/dL (75-99)
[2016-11-19] MEDS: INSULIN LISPRO (humaLOG) 300 UNIT/3 ML VIAL SQ SCH ×4 (08:01→21:15)
[2016-11-19] MEDS: CHOLESTYRAMINE (WITH SUGAR) 4 GM PACKET PO SCH ×2 (08:22→17:17)
[2016-11-19] MEDS: CLINDAMYCIN 900 MG in DEXTROSE 5% IN WATER 50 ML IVPB SCH ×6 (08:22→23:56)
[2016-11-19] MEDS: HYDROcodone/APAP 5-325MG 1 EACH TAB PO PRN ×2 (08:26→21:13)
[2016-11-19 08:27] LABS: Basophils % (A) 0 %; CH 29.1; CHCM 33.7; Eosinophils % (A) 0 %; HCT 31.7 % (39.0-53.0); HDW 3.24; HGB 10.7 gm/dL (13.0-17.5); Luc # (Auto) 0.25; Luc % (Auto) 1; Lymphocytes # (A) 1.5 k/uL (1.0-4.8); Lymphocytes % (A) 8 %; MCH 29.3 pg (25.0-35.0); MCHC 33.7 g/dL (31.0-37.0); MCV 86.9 fL (80.0-100.0); Mean Platelet Volume 7.4; Monocytes # (A) 0.5 k/uL (0-1.0); Monocytes % (A) 3 %; Neutrophils # (A) 17.4 k/uL (1.3-7.7); Neutrophils % (A) 89 %; RBC 3.65 m/uL (4.30-5.90); RDW 14.3 % (11.5-15.5); WBC 19.7 k/uL (3.8-10.6); WBC (Perox) 20.79
[2016-11-19 08:39] LABS: ALT 66 U/L (21-72); AST 49 U/L (17-59); Alkaline Phosphatase 84 U/L (38-126); Anion Gap 14 mmol/L; Blood Urea Nitrogen 38 mg/dL (9-20); Calcium 8.6 mg/dL (8.4-10.2); Carbon Dioxide 19 mmol/L (22-30); Chloride 110 mmol/L (98-107); Glucose 130 mg/dL (74-99); Non-African American GFR(MDRD) >60 (>60 ml/min/1.73 sqM); Potassium 3.3 mmol/L (3.5-5.1); Sodium 143 mmol/L (137-145); Total Bilirubin 0.9 mg/dL (0.2-1.3); Total Protein 5.6 g/dL (6.3-8.2)
[2016-11-19] MEDS: CEFTAROLINE FOSAMIL 600 MG in SODIUM CHLORIDE 0.9% 250 ML IVPB SCH (10:19)
[2016-11-19] MEDS: POTASSIUM CHLORIDE 10 MEQ, LIDOCAINE 2% INJ 10 MG in SODIUM CHLORIDE 0.9% 100 ML IVPB SCH ×2 (12:08→13:18)
[2016-11-19 12:27] LABS: Glucose,Whole Blood 99 mg/dL (75-99)
[2016-11-19] MEDS: ceFAZolin 2 GM in SODIUM CHLORIDE 0.9% 100 ML IVPB SCH ×2 (15:30→23:56)
[2016-11-19 16:41] LABS: Glucose,Whole Blood 100 mg/dL (75-99)
--- NOTE | 2016-11-19 17:32 | P.PN ---
Subjective This is a 31-year-old gentleman who is in good health until 4 days prior to admission. 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 Patient thereafter came to the hospital for ongoing evaluation was informed that is likely viral gastroenteritis and thereafter discharged home. Over the last few days patient continued to have chills and has been significantly weak and his oral intake has been decreased. Initial evaluation on the first ER visit patient did undergo a rapid flu which was negative At the time of the current admission and evaluation patient is complaining of this rash on his left side of the chest associated with significant tenderness and pain in his shoulder. Patient's who was at bedside stated that she also work with them and has a similar rash on her elbow and she apparently did have significant chills and fevers thereafter improved however. At the time of my evaluation patient states that he has chills generalized weakness and significant joint pains especially worse on his left shoulder Patient does state [place] with multiple deer, 3 dogs cats and other farm animals. 11/16/2016 Patient was evaluated by our infectious disease doctor as well. A CT of the chest was done there is some cellulitis without any concern for abscess. There is have hepatosplenomegaly that is also appreciated. I did discuss with the patient patient states that he states to be feeling about the same. Urine output is stable. Continues to have fevers chills no nausea vomiting. Decreased number of loose bowel movements are reported 11/17/2016 Continues to have fevers. Patient states that his breathing is much more affected at this time. The rash has progressively gotten worse. States have 2-3 loose bowel movements the same period 11/18/16 states to be doing well no fevers, chills. breathing is improved states to have a cough slept well overnight. 11/19/16 continued improvement states to be doing well denies headaches, chest pain, n/v, diarrhea today Objective - Vital Signs Vital signs: Vital Signs Temp 98.2 F 11/19/16 15:00 Pulse 72 11/19/16 16:00 Resp 18 11/19/16 16:00 BP 139/79 11/19/16 15:00 Pulse Ox 98 11/19/16 15:00 Intake & Output 11/18/16 11/19/16 11/19/16 18:59 06:59 18:59 Intake Total 400 340 Balance 400 340 Weight 106.594 kg Intake: Oral 400 340 Other: Voiding Method Toilet Toilet # Voids 3 1 3 - Exam Physical exam Gen. appearance oriented 3 in no distress Neck is supple no JVD Lungs good air entry clear to auscultation no rhonchi or wheezing Heart S1-S2 heard regular rate and rhythm no murmurs appreciated Abdomen is soft nontender no organomegaly bowel sounds are intact Neurologically cranial nerves II-12 grossly intact no focal motor or sensory deficits noted Skin diffuse rash on the left chest wall is improving less tender to palpation. - Labs CBC & Chem 7: 11/19/16 08:10 11/19/16 08:10 Labs: Abnormal Lab Results - Last 24 Hours (Table) 11/18/16 11/19/16 11/19/16 Range/Units 21:11 07:02 08:10 WBC 19.7 H (3.8-10.6) k/uL RBC 3.65 L (4.30-5.90) m/uL Hgb 10.7 L (13.0-17.5) gm/dL Hct 31.7 L (39.0-53.0) % Neutrophils # 17.4 H (1.3-7.7) k/uL Potassium (3.5-5.1) mmol/L Chloride (98-107) mmol/L Carbon Dioxide (22-30) mmol/L BUN (9-20) mg/dL Glucose (74-99) mg/dL POC Glucose (mg/dL) 148 H 118 H (75-99) mg/dL Total Protein (6.3-8.2) g/dL Albumin (3.5-5.0) g/dL 11/19/16 11/19/16 Range/Units 08:10 16:36 WBC (3.8-10.6) k/uL RBC (4.30-5.90) m/uL Hgb (13.0-17.5) gm/dL Hct (39.0-53.0) % Neutrophils # (1.3-7.7) k/uL Potassium 3.3 L (3.5-5.1) mmol/L Chloride 110 H (98-107) mmol/L Carbon Dioxide 19 L (22-30) mmol/L BUN 38 H (9-20) mg/dL Glucose 130 H (74-99) mg/dL POC Glucose (mg/dL) 100 H (75-99) mg/dL Total Protein 5.6 L (6.3-8.2) g/dL Albumin 2.6 L (3.5-5.0) g/dL Microbiology - Last 24 Hours (Table) 11/15/16 14:37 Blood Culture - Preliminary Blood No Growth after 96 hours 11/16/16 20:22 Blood Culture - Preliminary Blood No Growth after 48 hours 11/16/16 20:04 Blood Culture - Preliminary Blood No Growth after 48 hours 11/15/16 17:32 Stool Culture - Final Stool Assessment and Plan Plan: #1 fever of unknown origin #2 acute cellulitis of the left upper chest #3 acute diarrhea, attributed to viral gastroenteritis #4 acute kidney injury prerenal in etiology appears to be #5 lactic acidosis #6 erythema migrans #7 acute hypoxic respiratory failure secondary to chest wall infection #8 right upper lobe mass #9.Diffuse Lymphadenopathy Plan results for autoimmune workup are negative burst of steroids were given pt improved continue NSAIDS discussed with Dr Brice ABx were changed to cefazolin In regards to the nodule, discussed about performing a ct scan on a outpatient basis, once the infection is resolved, to ensure resolution of the lymphadenopathy as well and eval of the nodule. renal function is improving overall improvement encourage ambulation IS
--- NOTE | 2016-11-19 17:59 | PN ---
Patient is seen for followup for acute kidney injury. His renal function has improved significantly with IV hydration. Patient's creatinine is down from 1.9 at peak to 1.15 now. He was admitted with chest wall cellulitis and is maintained on antibiotics. On examination, blood pressure 139/79, heart rate 75 per minute. He is afebrile. EXAMINATION OF THE HEART: S1 and S2. EXAMINATION OF LUNGS: Bilateral breath sounds are heard. ABDOMEN: Soft, nontender. Examination of lower extremities shows no evidence of edema. [employer] exam is grossly intact. Labs show sodium 143, potassium 3.3, chloride 110. Hemoglobin 10.7. Serum creatinine 1.15. ASSESSMENT: 1. Acute kidney injury, prerenal, currently significantly improved. 2. History of nephrolithiasis. Ultrasound done yesterday shows a cyst in the right kidney, which needs further imaging studies. Patient will be asked to follow up with Urology as outpatient. PLAN: Continue IV fluids. The patient is stable for discharge from nephrology standpoint. He should follow up with Urology as outpatient regarding the right renal lesion.
[2016-11-19 21:15] LABS: Glucose,Whole Blood 78 mg/dL (75-99)
[2016-11-20] MEDS: HYDROcodone/APAP 5-325MG 1 EACH TAB PO PRN ×3 (02:36→21:29)
[2016-11-20] MEDS: SODIUM CHLORIDE 0.9% 1,000 ML IV SCH ×3 (02:40→21:29)
[2016-11-20] MEDS: KETOROLAC 30 MG/ML 1 ML VIAL IVP SCH ×4 (06:14→23:50)
[2016-11-20 07:05] LABS: Glucose,Whole Blood 72 mg/dL (75-99)
[2016-11-20] MEDS: INSULIN LISPRO (humaLOG) 300 UNIT/3 ML VIAL SQ SCH ×4 (07:47→21:29)
--- NOTE | 2016-11-20 07:48 | PN ---
DATE OF SERVICE: 11/19/2016 Reason for Follow-up: Cellulitis. INTERVAL HISTORY: The patient is afebrile. He has been breathing comfortably. The left jaw swelling and redness has improved. The patient denies significant abdominal pain. No nausea, vomiting. Diarrhea has improved with Questran started yesterday. On examination, blood pressure is 139/79 with a pulse 92, temperature 98.2. He is 98% on room air. GENERAL DESCRIPTION: A young male, lying in bed in no distress. RESPIRATORY SYSTEM: Unlabored breathing. Clear to auscultation anteriorly. HEART: S1, S2. Regular rate and rhythm. ABDOMEN: Soft, no tenderness. LEGS: Shows overall swelling and redness has improved. LABS: Hemoglobin is 10.7 with a white count of 98.7 with a BUN of 38, creatinine 1.15. Liver enzymes have normalized. Blood culture has been negative. DIAGNOSTIC IMPRESSION AND PLAN: Patient with sepsis with left chest wall cellulitis. The patient seemed to have shown overall clinical improvement. Clinically looks more of a streptococcal disease in view of the rapid progression. Hence, we will discontinue Teflaro , start cefazolin and continue clindamycin. If the patient continues to improve, hopefully we will be able to finish therapy with oral antibiotic over the next 24 to 48 hours. Plan of care discussed in detail with the attending physician. Patient did have slight elevated white count more likely steroids he did receive for about 2 days. Hopefully we will see a trend down once the steroids have been discontinued. MTDD
[2016-11-20] MEDS: ceFAZolin 2 GM in SODIUM CHLORIDE 0.9% 100 ML IVPB SCH (07:52)
[2016-11-20] MEDS: CHOLESTYRAMINE (WITH SUGAR) 4 GM PACKET PO SCH ×2 (07:57→17:26)
[2016-11-20 08:52] LABS: ALT 67 U/L (21-72); AST 44 U/L (17-59); Alkaline Phosphatase 66 U/L (38-126); Anion Gap 11 mmol/L; Blood Urea Nitrogen 32 mg/dL (9-20); Calcium 8.1 mg/dL (8.4-10.2); Carbon Dioxide 21 mmol/L (22-30); Chloride 109 mmol/L (98-107); Glucose 91 mg/dL (74-99); Non-African American GFR(MDRD) >60 (>60 ml/min/1.73 sqM); Potassium 3.4 mmol/L (3.5-5.1); Sodium 141 mmol/L (137-145); Total Bilirubin 0.9 mg/dL (0.2-1.3); Total Protein 5.5 g/dL (6.3-8.2)
[2016-11-20 09:01] LABS: Basophils % (A) 0 %; CH 29.2; CHCM 33.4; Eosinophils # (A) 0.3 k/uL (0-0.7); Eosinophils % (A) 2 %; HCT 33.4 % (39.0-53.0); HDW 3.12; HGB 11.2 gm/dL (13.0-17.5); Luc # (Auto) 0.27; Luc % (Auto) 2; Lymphocytes # (A) 1.8 k/uL (1.0-4.8); Lymphocytes % (A) 13 %; MCH 29.6 pg (25.0-35.0); MCHC 33.7 g/dL (31.0-37.0); Mean Platelet Volume 7.5; Monocytes # (A) 0.5 k/uL (0-1.0); Monocytes % (A) 4 %; Neutrophils % (A) 79 %; RBC 3.79 m/uL (4.30-5.90); RDW 14.5 % (11.5-15.5); WBC 13.9 k/uL (3.8-10.6); WBC (Perox) 13.44
[2016-11-20] MEDS: CLINDAMYCIN 900 MG in DEXTROSE 5% IN WATER 50 ML IVPB SCH ×6 (09:41→23:50)
[2016-11-20] MEDS: ALBUTEROL NEBULIZED 2.5 MG/3 ML INHALATION PRN ×3 (11:03→20:00)
[2016-11-20 11:23] LABS: Glucose,Whole Blood 71 mg/dL (75-99)
[2016-11-20] MEDS ORDERED: SODIUM CHLORIDE 0.9% 1,000 ML IV ONE (13:04)
[2016-11-20] MEDS ORDERED: POTASSIUM CHLORIDE ER 20 MEQ TAB.ER PO STA (13:06)
[2016-11-20] MEDS: CEFTAROLINE FOSAMIL 600 MG in SODIUM CHLORIDE 0.9% 250 ML IVPB SCH ×2 (13:55→21:29)
--- NOTE | 2016-11-20 14:17 | PN ---
The patient is seen for follow-up for acute kidney injury. He was admitted to the hospital with left chest wall cellulitis. His infection has improved. However, last night, there was a new area of redness noted around his left back area. Renal function has improved with creatinine now down to 1.1 from 1.9 mg/dL. UA on initial admission showed 1+ protein and small blood. We will repeat another UA post discharge and follow up as outpatient. On examination today, blood pressure is 133/78, heart rate 91 per minute. The patient had fever of 101 degrees Fahrenheit. Examination of the heart S1 and S2. Examination of the lungs: Bilateral breath sounds are heard. ABDOMEN: Soft, nontender. Examination of lower extremities shows no evidence of edema. [employer] REPA[employer] CHIEF exam is grossly intact. There is area of swelling noted around the left back area. Labs show sodium 141, potassium 3.4, chloride 109, BUN 32, serum creatinine 1.1. ASSESSMENT: 1. Acute kidney injury, prerenal, currently improved. We will follow up on the urinalysis as outpatient. All serologies are negative thus far. 2. History of nephrolithiasis. Ultrasound of the abdomen showed a cyst on the right kidney which did not meet criteria for simple cyst. Will need further evaluation as outpatient. 3. Left renal lesion needs further evaluation as outpatient. PLAN: Continue to encourage increased oral intake. Continue antibiotics. Repeat UA.
[2016-11-20] MEDS: ACETAMINOPHEN TAB 325 MG TAB PO PRN (15:44)
[2016-11-20 15:46] LABS: Appearance,Urine Clear (Clear); Bilirubin,Urine Negative (Negative); Glucose,Urine (UA) Negative (Negative); Ketones,Urine Negative (Negative); Leukocyte Esterase,Urine Negative (Negative); Nitrite,Urine Negative (Negative); PH, Urine 5.5 (5.0-8.0); Protein,Urine Negative (Negative); Specific Gravity,Urine 1.012 (1.001-1.035); UA Billing (MACRO vs. MICRO) CHEM; Urobilinogen,Urine <2.0 mg/dL (<2.0)
--- NOTE | 2016-11-20 16:04 | P.PN ---
Subjective This is a 31-year-old gentleman who is in good health until 4 days prior to admission. 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 Patient thereafter came to the hospital for ongoing evaluation was informed that is likely viral gastroenteritis and thereafter discharged home. Over the last few days patient continued to have chills and has been significantly weak and his oral intake has been decreased. Initial evaluation on the first ER visit patient did undergo a rapid flu which was negative At the time of the current admission and evaluation patient is complaining of this rash on his left side of the chest associated with significant tenderness and pain in his shoulder. Patient's who was at bedside stated that she also work with them and has a similar rash on her elbow and she apparently did have significant chills and fevers thereafter improved however. At the time of my evaluation patient states that he has chills generalized weakness and significant joint pains especially worse on his left shoulder Patient does state that [place] with multiple deer, 3 dogs cats and other farm animals. 11/16/2016 Patient was evaluated by our infectious disease doctor as well. A CT of the chest was done there is some cellulitis without any concern for abscess. There is have hepatosplenomegaly that is also appreciated. I did discuss with the patient patient states that he states to be feeling about the same. Urine output is stable. Continues to have fevers chills no nausea vomiting. Decreased number of loose bowel movements are reported 11/17/2016 Continues to have fevers. Patient states that his breathing is much more affected at this time. The rash has progressively gotten worse. States have 2-3 loose bowel movements the same period 11/18/16 states to be doing well no fevers, chills. breathing is improved states to have a cough slept well overnight. 11/19/16 continued improvement states to be doing well denies headaches, chest pain, n/v, diarrhea today 11/20/16 noted a new rash on left flank, had a fever this am during the time of my eval , pt is doing well feels weaker than yesterday. Objective - Vital Signs Vital signs: Vital Signs Temp 100.3 F H 11/20/16 12:02 Pulse 84 11/20/16 15:05 Resp 16 11/20/16 07:00 BP 133/78 11/20/16 07:00 Pulse Ox 92 L 11/20/16 07:00 Intake & Output 11/19/16 11/20/16 11/20/16 18:59 06:59 18:59 Intake Total 340 Balance 340 Weight 106.594 kg Intake: Oral 340 Other: Voiding Method Toilet # Voids 3 1 - Exam Physical exam Gen. appearance oriented 3 in no distress Neck is supple no JVD Lungs good air entry clear to auscultation no rhonchi or wheezing Heart S1-S2 heard regular rate and rhythm no murmurs appreciated Abdomen is soft nontender no organomegaly bowel sounds are intact Neurologically cranial nerves II-12 grossly intact no focal motor or sensory deficits noted Skin diffuse rash on the left chest wall is improving less tender to palpation. , new rash on the left flank tender to palpation. - Labs CBC & Chem 7: 11/20/16 08:17 11/20/16 08:17 Labs: Abnormal Lab Results - Last 24 Hours (Table) 11/19/16 11/20/16 11/20/16 Range/Units 16:36 07:03 08:17 WBC 13.9 H (3.8-10.6) k/uL RBC 3.79 L (4.30-5.90) m/uL Hgb 11.2 L (13.0-17.5) gm/dL Hct 33.4 L (39.0-53.0) % Neutrophils # 11.0 H (1.3-7.7) k/uL Potassium (3.5-5.1) mmol/L Chloride (98-107) mmol/L Carbon Dioxide (22-30) mmol/L BUN (9-20) mg/dL POC Glucose (mg/dL) 100 H 72 L (75-99) mg/dL Calcium (8.4-10.2) mg/dL Total Protein (6.3-8.2) g/dL Albumin (3.5-5.0) g/dL 11/20/16 11/20/16 Range/Units 08:17 11:21 WBC (3.8-10.6) k/uL RBC (4.30-5.90) m/uL Hgb (13.0-17.5) gm/dL Hct (39.0-53.0) % Neutrophils # (1.3-7.7) k/uL Potassium 3.4 L (3.5-5.1) mmol/L Chloride 109 H (98-107) mmol/L Carbon Dioxide 21 L (22-30) mmol/L BUN 32 H (9-20) mg/dL POC Glucose (mg/dL) 71 L (75-99) mg/dL Calcium 8.1 L (8.4-10.2) mg/dL Total Protein 5.5 L (6.3-8.2) g/dL Albumin 2.4 L (3.5-5.0) g/dL Microbiology - Last 24 Hours (Table) 11/15/16 17:32 Stool Culture - Final Stool 11/16/16 20:22 Blood Culture - Preliminary Blood No Growth after 72 hours 11/16/16 20:04 Blood Culture - Preliminary Blood No Growth after 72 hours 11/15/16 14:37 Blood Culture - Preliminary Blood No Growth after 96 hours Assessment and Plan Plan: #1 fever of unknown origin #2 acute cellulitis of the left upper chest #3 acute diarrhea, attributed to viral gastroenteritis #4 acute kidney injury prerenal in etiology appears to be #5 lactic acidosis #6 erythema migrans #7 acute hypoxic respiratory failure secondary to chest wall infection #8 right upper lobe mass #9.Diffuse Lymphadenopathy Plan results for autoimmune workup are negative burst of steroids were given pt improved continue NSAIDS. CRP melia. add MRSA coverage, as pt worsened In regards to the nodule, discussed about performing a ct scan on a outpatient basis, once the infection is resolved, to ensure resolution of the lymphadenopathy as well and eval of the nodule. renal function is improving encourage ambulation IS
[2016-11-20 17:02] LABS: Glucose,Whole Blood 83 mg/dL (75-99)
[2016-11-20 21:05] LABS: Glucose,Whole Blood 87 mg/dL (75-99)
[2016-11-21] MEDS: KETOROLAC 30 MG/ML 1 ML VIAL IVP SCH (06:33)
[2016-11-21] MEDS: ALBUTEROL NEBULIZED 2.5 MG/3 ML INHALATION PRN ×4 (07:00→19:44)
[2016-11-21 07:54] LABS: Glucose,Whole Blood 73 mg/dL (75-99)
[2016-11-21] MEDS: INSULIN LISPRO (humaLOG) 300 UNIT/3 ML VIAL SQ SCH ×2 (08:24→12:21)
[2016-11-21] MEDS: CHOLESTYRAMINE (WITH SUGAR) 4 GM PACKET PO SCH ×2 (08:25→17:50)
[2016-11-21] MEDS: LOPERAMIDE 2 MG CAP PO PRN (08:25)
[2016-11-21] MEDS: HYDROcodone/APAP 5-325MG 1 EACH TAB PO PRN ×2 (08:25→15:02)
[2016-11-21] MEDS: CLINDAMYCIN 900 MG in DEXTROSE 5% IN WATER 50 ML IVPB SCH ×6 (08:26→23:32)
[2016-11-21] MEDS: CEFTAROLINE FOSAMIL 600 MG in SODIUM CHLORIDE 0.9% 250 ML IVPB SCH ×2 (09:08→22:19)
[2016-11-21 09:32] LABS: Basophils % (A) 0 %; CH 28.8; CHCM 32.6; Eosinophils # (A) 0.3 k/uL (0-0.7); Eosinophils % (A) 2 %; HCT 33.3 % (39.0-53.0); HDW 2.83; HGB 10.5 gm/dL (13.0-17.5); Luc # (Auto) 0.21; Luc % (Auto) 2; Lymphocytes # (A) 1.5 k/uL (1.0-4.8); Lymphocytes % (A) 10 %; MCH 27.9 pg (25.0-35.0); MCHC 31.4 g/dL (31.0-37.0); MCV 88.9 fL (80.0-100.0); Mean Platelet Volume 7.3; Monocytes # (A) 0.4 k/uL (0-1.0); Monocytes % (A) 3 %; Neutrophils # (A) 11.7 k/uL (1.3-7.7); Neutrophils % (A) 83 %; RBC 3.75 m/uL (4.30-5.90); RDW 14.6 % (11.5-15.5); WBC 14.1 k/uL (3.8-10.6)
[2016-11-21 09:51] LABS: ALT 51 U/L (21-72); AST 26 U/L (17-59); Alkaline Phosphatase 71 U/L (38-126); Anion Gap 11 mmol/L; Blood Urea Nitrogen 20 mg/dL (9-20); Calcium 8.1 mg/dL (8.4-10.2); Carbon Dioxide 21 mmol/L (22-30); Chloride 106 mmol/L (98-107); Glucose 120 mg/dL (74-99); Non-African American GFR(MDRD) >60 (>60 ml/min/1.73 sqM); Potassium 3.5 mmol/L (3.5-5.1); Sodium 138 mmol/L (137-145); Total Bilirubin 1.1 mg/dL (0.2-1.3); Total Protein 5.5 g/dL (6.3-8.2)
[2016-11-21] MEDS ORDERED: POTASSIUM CHLORIDE ER 20 MEQ TAB.ER PO STA (09:58)
--- NOTE | 2016-11-21 09:58 | P.PN ---
Subjective Patient is seen in follow-up for acute kidney injury. Creatinine did peak at 1.9 this admission and has been gradually improving. It is down to 1.0 this morning. His repeat urinalysis is benign. Serologic workup has been negative. He is currently resting in bed. Denies any chest pain or shortness of breath. Chest erythema is improved. No vomiting. Does have some diarrhea. Oral intake has improved. Vital signs are stable. General: The patient appeared well nourished and normally developed. HEENT: Head exam is unremarkable. Neck is without jugular venous distension. LUNGS: Lungs are clear to auscultation and percussion. Breath sounds decreased. HEART: Rate and Rhythm are regular. First and second heart sounds normal. No murmurs, rubs or gallops. ABDOMEN: Abdominal exam reveals normal bowel sounds. Non-tender and non- distended. No evidence of peritonitis. EXTREMITITES: No clubbing, cyanosis, or edema. Objective - Vital Signs Vital signs: Vital Signs Temp 98.7 F 11/21/16 07:00 Pulse 80 11/21/16 07:11 Resp 20 11/21/16 07:00 BP 144/88 11/21/16 07:00 Pulse Ox 94 L 11/21/16 07:00 Intake & Output 11/20/16 11/21/16 11/21/16 18:59 06:59 18:59 Intake Total 750 850 Balance 750 850 Intake: Oral 750 850 Other: Voiding Method Toilet # Voids 2 1 - Labs CBC & Chem 7: 11/21/16 08:16 11/21/16 08:16 Labs: Abnormal Lab Results - Last 24 Hours (Table) 11/20/16 11/21/16 11/21/16 Range/Units 11:21 07:24 08:16 WBC 14.1 H (3.8-10.6) k/uL RBC 3.75 L (4.30-5.90) m/uL Hgb 10.5 L (13.0-17.5) gm/dL Hct 33.3 L (39.0-53.0) % Neutrophils # 11.7 H (1.3-7.7) k/uL Carbon Dioxide (22-30) mmol/L Glucose (74-99) mg/dL POC Glucose (mg/dL) 71 L 73 L (75-99) mg/dL Calcium (8.4-10.2) mg/dL C-Reactive Protein (<10.0) mg/L Total Protein (6.3-8.2) g/dL Albumin (3.5-5.0) g/dL 11/21/16 Range/Units 08:16 WBC (3.8-10.6) k/uL RBC (4.30-5.90) m/uL Hgb (13.0-17.5) gm/dL Hct (39.0-53.0) % Neutrophils # (1.3-7.7) k/uL Carbon Dioxide 21 L (22-30) mmol/L Glucose 120 H (74-99) mg/dL POC Glucose (mg/dL) (75-99) mg/dL Calcium 8.1 L (8.4-10.2) mg/dL C-Reactive Protein 73.0 H (<10.0) mg/L Total Protein 5.5 L (6.3-8.2) g/dL Albumin 2.3 L (3.5-5.0) g/dL Microbiology - Last 24 Hours (Table) 11/20/16 15:07 Urine Culture - Preliminary Urine,Voided 11/16/16 20:22 Blood Culture - Preliminary Blood No Growth after 96 hours 11/16/16 20:04 Blood Culture - Preliminary Blood No Growth after 96 hours 11/15/16 14:37 Blood Culture - Preliminary Blood No Growth after 120 hours 11/15/16 17:32 Stool Culture - Final Stool Assessment and Plan Plan: Assessment: #1. Nonoliguric acute kidney injury mostly prerenal due to sepsis and use of NSAIDs. No evidence of glomerulonephritis. Renal function improving with creatinine down to 1.0 today. Repeat urinalysis completely benign. Logic workup negative. #2. Left chest wall cellulitis. #3. Hypokalemia secondary to poor oral intake. #4. History of nephrolithiasis. #5. Left kidney complex cyst. Plan: Encourage oral intake. Replace potassium. 20 mEq today. Antibiotics per infectious disease recommendations. Avoid nephrotoxic agents and hypotensive episodes. Discontinue NSAIDs. Repeat electrolytes in the morning. Patient will need to follow-up as an outpatient with urology for the left kidney lesion.
--- NOTE | 2016-11-21 11:13 | PN ---
DATE OF SERVICE: 11/20/2016 Reason for followup is chest wall cellulitis. INTERVAL HISTORY: The patient did spike another fever this morning of 101.1 degrees Fahrenheit that was around 10:51 of 100.3 around noon. The patient did have repeat blood culture, has been obtained. The patient's white count that was 19,000 yesterday down to 13.9. He was also noted to have some more swelling around his left side trunk area. The patient did mention he is not feeling as good as he was feeling yesterday though the patient denies having any chest pain or shortness of breath or cough. No abdominal pain and no diarrhea. On examination, blood pressure is 133/87 with a pulse of 84, temperature 99.5. T-max is 101. He is 95% on room air. General description is a young male up in the room in no distress. RESPIRATORY SYSTEM: Unlabored breathing. Clear to auscultation anteriorly. HEART: S1, S2. Regular rate and rhythm. ABDOMEN: Soft. No tenderness. EXAMINATION OF THE LEFT CHEST WALL: Overall swelling and redness have improved. The left lower trunk with slight area of erythema persists with a new area of swelling and redness. EXTREMITIES: No edema of the feet. LABS: Hemoglobin 11.2, white count 13.9. BUN of 32 with a creatinine 1.10. Urine has been negative. DIAGNOSTIC IMPRESSION AND PLAN: Patient with fever with left chest wall cellulitis. The patient did well with Teflaro and clindamycin now with a new fever after the Teflaro was discontinued yesterday, plan was possibly to get him out on oral Keflex if the patient continued to improve with cefazolin. Patient has been started back on Teflaro with overall improvement in his fever, which means the patient will likely need a PICC line and IV antibiotic in the form of Teflaro for outpatient setting. The patient's blood culture reported positive diphtheroid species, more likely these blood cultures were drawn in the ER on 11/15/2016 at 11:12. The patient did have a blood culture done on the same day at 14:37, those have been negative. It is pointing more towards a possible skin contamination rather than a true infection as the patient is immunocompetent and no prison central lines. We will continue to monitor the patient closely. was present at bedside and questions were answered. To be continued on Teflaro in addition with the clindamycin. MTDD
[2016-11-21 12:37] LABS: Glucose,Whole Blood 65 mg/dL (75-99)
[2016-11-21 12:37] LABS: Glucose,Whole Blood 45 mg/dL (75-99)
[2016-11-21 12:47] LABS: Glucose,Whole Blood 76 mg/dL (75-99)
--- NOTE | 2016-11-21 17:35 | P.PN ---
Subjective This is a 31-year-old gentleman who is in good health until 4 days prior to admission. 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 Patient thereafter came to the hospital for ongoing evaluation was informed that is likely viral gastroenteritis and thereafter discharged home. Over the last few days patient continued to have chills and has been significantly weak and his oral intake has been decreased. Initial evaluation on the first ER visit patient did undergo a rapid flu which was negative At the time of the current admission and evaluation patient is complaining of this rash on his left side of the chest associated with significant tenderness and pain in his shoulder. Patient's who was at bedside stated that she also work with them and has a similar rash on her elbow and she apparently did have significant chills and fevers thereafter improved however. At the time of my evaluation patient states that he has chills generalized weakness and significant joint pains especially worse on his left shoulder Patient does state [place] with multiple [place], 3 dogs cats and other farm animals. 11/16/2016 Patient was evaluated by our infectious disease doctor as well. A CT of the chest was done there is some cellulitis without any concern for abscess. There is have hepatosplenomegaly that is also appreciated. I did discuss with the patient patient states that he states to be feeling about the same. Urine output is stable. Continues to have fevers chills no nausea vomiting. Decreased number of loose bowel movements are reported 11/17/2016 Continues to have fevers. Patient states that his breathing is much more affected at this time. The rash has progressively gotten worse. States have 2-3 loose bowel movements the same period 11/18/16 states to be doing well no fevers, chills. breathing is improved states to have a cough slept well overnight. 11/19/16 continued improvement states to be doing well denies headaches, chest pain, n/v, diarrhea today 11/20/16 noted a new rash on left flank, had a fever this am during the time of my eval , pt is doing well feels weaker than yesterday. 11/21/16 doing well today rash is improved no fevers, chills, nausea, vomiting, diarrhea is controlled. Objective - Vital Signs Vital signs: Vital Signs Temp 99.4 F 11/21/16 15:00 Pulse 80 11/21/16 16:28 Resp 19 11/21/16 15:00 BP 141/85 11/21/16 15:00 Pulse Ox 96 11/21/16 15:00 Intake & Output 11/20/16 11/21/16 11/21/16 18:59 06:59 18:59 Intake Total 750 850 Balance 750 850 Intake: Oral 750 850 Other: Voiding Method Toilet Toilet # Voids 2 1 2 - Exam Physical exam Gen. appearance oriented 3 in no distress Neck is supple no JVD Lungs good air entry clear to auscultation no rhonchi or wheezing Heart S1-S2 heard regular rate and rhythm no murmurs appreciated Abdomen is soft nontender no organomegaly bowel sounds are intact Neurologically cranial nerves II-12 grossly intact no focal motor or sensory deficits noted Skin diffuse rash on the left chest wall is improving less tender to palpation. , - Labs CBC & Chem 7: 11/21/16 08:16 11/21/16 08:16 Labs: Abnormal Lab Results - Last 24 Hours (Table) 11/21/16 11/21/16 11/21/16 Range/Units 07:24 08:16 08:16 WBC 14.1 H (3.8-10.6) k/uL RBC 3.75 L (4.30-5.90) m/uL Hgb 10.5 L (13.0-17.5) gm/dL Hct 33.3 L (39.0-53.0) % Neutrophils # 11.7 H (1.3-7.7) k/uL Carbon Dioxide 21 L (22-30) mmol/L Glucose 120 H (74-99) mg/dL POC Glucose (mg/dL) 73 L (75-99) mg/dL Calcium 8.1 L (8.4-10.2) mg/dL C-Reactive Protein 73.0 H (<10.0) mg/L Total Protein 5.5 L (6.3-8.2) g/dL Albumin 2.3 L (3.5-5.0) g/dL 11/21/16 11/21/16 Range/Units 12:28 12:29 WBC (3.8-10.6) k/uL RBC (4.30-5.90) m/uL Hgb (13.0-17.5) gm/dL Hct (39.0-53.0) % Neutrophils # (1.3-7.7) k/uL Carbon Dioxide (22-30) mmol/L Glucose (74-99) mg/dL POC Glucose (mg/dL) 45 L 65 L (75-99) mg/dL Calcium (8.4-10.2) mg/dL C-Reactive Protein (<10.0) mg/L Total Protein (6.3-8.2) g/dL Albumin (3.5-5.0) g/dL Microbiology - Last 24 Hours (Table) 11/15/16 14:37 Blood Culture - Final Blood No Growth after 144 hours 11/20/16 13:28 Blood Culture - Preliminary Blood No Growth after 24 hours 11/20/16 13:12 Blood Culture - Preliminary Blood No Growth after 24 hours 11/20/16 15:07 Urine Culture - Preliminary Urine,Voided 11/16/16 20:22 Blood Culture - Preliminary Blood No Growth after 96 hours 11/16/16 20:04 Blood Culture - Preliminary Blood No Growth after 96 hours Assessment and Plan Plan: #1 Sepsis sec to #2, present on admission #2 acute cellulitis of the left upper chest, likely the etiology . infection extending into the neck, unknown underlying etiology #3 acute diarrhea, attributed to viral gastroenteritis #4 acute kidney injury prerenal in etiology appears to be #5 lactic acidosis #6 acute hypoxic respiratory failure secondary to chest wall infection #7 right upper lobe mass #8.Diffuse Lymphadenopathy Plan results for autoimmune workup are negative burst of steroids were given pt improved PICC line dc home on ceftoraline In regards to the nodule, discussed about performing a ct scan on a outpatient basis, once the infection is resolved, to ensure resolution of the lymphadenopathy as well and eval of the nodule. renal function is improving encourage ambulation IS
[2016-11-21] MEDS: SODIUM CHLORIDE 0.9% 1,000 ML IV SCH (22:19)
[2016-11-21] MEDS: ACETAMINOPHEN TAB 325 MG TAB PO PRN (23:32)
--- NOTE | 2016-11-22 07:36 | PN ---
DATE OF SERVICE: 11/21/2016 Reason for follow-up: Chest wall cellulitis and possible MRSA. INTERVAL HISTORY: The patient overall feels better, has improved after restarting Teflaro. Patient left lower trunk swelling and redness has improved. No new rash has been noticed. Denies having any chest pain or shortness of breath. No abdominal pain. No diarrhea. On examination, blood pressure is 141/85 with a pulse of 87, temperature 99.4. He is 96% on room air. General description is a middle-aged male, up in the bed in no distress. RESPIRATORY SYSTEM: Unlabored breathing. Clear to auscultation anteriorly. HEART: S1, S2. Regular rate and rhythm. ABDOMEN: Soft. The left chest wall swelling has improved as well as the trunk. A new area of swelling has improved as well. LABS: Hemoglobin is 10.5, white count of 14.1, BUN of 20, creatinine of 1. DIAGNOSTIC IMPRESSION AND PLAN: Patient with chest wall cellulitis in a patient who did have recurrence of fever after we discontinue teflaro likely indicating possible MRSA infection. The patient is to continue on the Teflaro for which a PICC line placement to finish antibiotic likely two weeks. We will discontinue the clindamycin. Once antibiotic arranged, he should be able to go home from ID standpoint. Continue supportive care. NISH
[2016-11-22] MEDS: CEFTAROLINE FOSAMIL 600 MG in SODIUM CHLORIDE 0.9% 250 ML IVPB SCH ×2 (07:46→17:47)
[2016-11-22] MEDS: HYDROcodone/APAP 5-325MG 1 EACH TAB PO PRN ×2 (07:46→14:00)
[2016-11-22] MEDS: CHOLESTYRAMINE (WITH SUGAR) 4 GM PACKET PO SCH ×2 (07:50→16:39)
[2016-11-22] MEDS: LOPERAMIDE 2 MG CAP PO PRN (07:50)
[2016-11-22] MEDS: ALBUTEROL NEBULIZED 2.5 MG/3 ML INHALATION PRN ×3 (08:28→15:59)
[2016-11-22 10:10] LABS: Anion Gap 9 mmol/L; Blood Urea Nitrogen 14 mg/dL (9-20); Calcium 8.3 mg/dL (8.4-10.2); Carbon Dioxide 23 mmol/L (22-30); Chloride 106 mmol/L (98-107); Glucose 108 mg/dL (74-99); Non-African American GFR(MDRD) >60 (>60 ml/min/1.73 sqM); Potassium 3.8 mmol/L (3.5-5.1); Sodium 138 mmol/L (137-145)
[2016-11-22] MEDS ORDERED: POTASSIUM CHLORIDE ER 20 MEQ TAB.ER PO STA (11:18)
--- NOTE | 2016-11-22 12:58 | PN ---
DATE OF SERVICE: 11/22/2016 Reason for followup is left chest wall cellulitis. INTERVAL HISTORY: The patient did have a low-grade fever of 100.2 last night, however, the patient is afebrile since then. Overall, patient is feeling better. The left chest wall area swelling and redness has improved. Patient denies having any nausea, vomiting and no abdominal pain. Still has some diarrhea. On examination, blood pressure 164/93 with a pulse of 69, temperature 98.3. He is 95% on room air. General description is a middle-age male up in the bed in no distress. RESPIRATORY SYSTEM: Unlabored breathing. Clear to auscultation anteriorly. HEART: S1, S2. Regular rate and rhythm. ABDOMEN: Soft, no tenderness. Left chest wall overall swelling and redness has much improved. LABS: BUN of 14, creatinine 0.95. CBC was not done today. DIAGNOSTIC IMPRESSION AND PLAN: Patient with left chest wall cellulitis more likely methicillin-resistant Staphylococcus aureus as the patient did have recurrence of fever once the Teflaro was discontinued. Plan at this time is to continue the patient on Teflaro 600 q.12 for another 10 days to 2weeks depending on his clinical response. Follow-up blood cultures negative. CRP which was 544 on admission is down to 73 and his cellulitis has significantly improved. [facility]
[2016-11-22 14:40] VITALS: BP 165/85; RESP 20; TEMP 98.6
--- NOTE | 2016-11-22 15:37 | IR ---
EXAMINATION TYPE: IR cvc insert >=5 years DATE OF EXAM: 11/22/2016 3:05 PM COMPARISON: NONE CLINICAL HISTORY: Infection Needs long-term intravenous access for antibiotics. PROCEDURE: After informed consent, the skin overlying the right basilic vein was localized with ultrasound and n oted to be compressible and patent. An ultrasound image was obtained and submitted on the patient's chart. The overlying skin was prepped and draped and Lidocaine was used for local anesthesia. A ski n richard was made with a scalpel. Access was gained to the vein under ultrasound guidance with a 21 ga uge needle and a 0.018 inch wire was advanced. Access site was dilated with Peel-Away sheath and cat heter tailored to the appropriate length and advanced such that the distal tip is at the cavoatrial j unction. Spot image was obtained verifying placement at the cavoatrial junction. Catheter was fixed to the skin with suture and a sterile dressing was placed following hemostasis. Catheter was aspira farhan and flushed with saline. Patient was discharged in stable condition without complication. Tati l barrier technique is utilized. Ultrasound image is documented on the chart. Ultrasound used with s terile technique. Fluoro time and fluoroscopic images submitted to document procedure: 128 intraoperative C-arm images, 1.1 minutes fluoroscopy time IMPRESSION: STATUS POST ULTRASOUND AND FLUOROSCOPIC GUIDED PICC LINE PLACEMENT, READY FOR USE. THIS PROCEDURE WAS PERFORMED BY THE UNDERSIGNED.
[2016-11-22 16:03] VITALS: PULSE 82
--- NOTE | 2016-11-22 16:43 | P.PN ---
Subjective Patient is seen in follow-up for acute kidney injury. Creatinine did peak at 1.9 this admission and has been gradually improving. It is down to 0.95 this morning. His repeat urinalysis is benign. Serologic workup has been negative. He is currently resting in bed. Denies any chest pain or shortness of breath. Chest erythema is improved. No vomiting. Oral intake has improved. Vital signs are stable. General: The patient appeared well nourished and normally developed. HEENT: Head exam is unremarkable. Neck is without jugular venous distension. LUNGS: Lungs are clear to auscultation and percussion. Breath sounds decreased. HEART: Rate and Rhythm are regular. First and second heart sounds normal. No murmurs, rubs or gallops. ABDOMEN: Abdominal exam reveals normal bowel sounds. Non-tender and non- distended. No evidence of peritonitis. EXTREMITITES: No clubbing, cyanosis, or edema. Objective - Vital Signs Vital signs: Vital Signs Temp 98.6 F 11/22/16 14:00 Pulse 82 11/22/16 16:11 Resp 20 11/22/16 14:00 BP 165/85 11/22/16 14:00 Pulse Ox 96 11/22/16 14:00 Intake & Output 11/21/16 11/22/16 11/22/16 18:59 06:59 18:59 Intake Total 100 Balance 100 Intake: Oral 100 Other: Voiding Method Toilet Toilet Toilet # Voids 2 1 3 - Labs CBC & Chem 7: 11/21/16 08:16 11/22/16 09:15 Labs: Abnormal Lab Results - Last 24 Hours (Table) 11/22/16 Range/Units 09:15 Glucose 108 H (74-99) mg/dL Calcium 8.3 L (8.4-10.2) mg/dL Microbiology - Last 24 Hours (Table) 11/20/16 13:28 Blood Culture - Preliminary Blood No Growth after 48 hours 11/20/16 13:12 Blood Culture - Preliminary Blood No Growth after 48 hours 11/16/16 20:22 Blood Culture - Preliminary Blood No Growth after 120 hours 11/16/16 20:04 Blood Culture - Preliminary Blood No Growth after 120 hours 11/20/16 15:07 Urine Culture - Final Urine,Voided 11/15/16 14:37 Blood Culture - Final Blood No Growth after 144 hours Assessment and Plan Plan: Assessment: #1. Nonoliguric acute kidney injury mostly prerenal due to sepsis and use of NSAIDs. No evidence of glomerulonephritis. Renal function improving with creatinine down to 0.95 today. Repeat urinalysis completely benign. Serologic workup negative. #2. Left chest wall cellulitis. Improved. #3. Hypokalemia secondary to poor oral intake. Improved. #4. History of nephrolithiasis. #5. Left kidney complex cyst. Plan: Encourage oral intake. Antibiotics per infectious disease recommendations. Avoid nephrotoxic agents and hypotensive episodes. Discontinued NSAIDs. Repeat electrolytes in the morning. Patient will need to follow-up as an outpatient with urology for the left kidney lesion.
[2016-11-22] MEDS: SODIUM CHLORIDE 0.9% 1,000 ML IV SCH (17:48)
--- NOTE | 2016-11-22 17:53 | P.CONS ---
History of Present Illness - Reason for Consult Consult date: 11/18/16 - History of Present Illness I saw pt. today and his left chest wall/shoulder swelling have improved >50% since yesterday. Pt. is sitting up in bed, holding a conversation and feeling much better. Pt.'s PCP has discontinued IV steroids at this time due to pt.'s improvement and concern for the possibility of further immunosuppression. Past Medical History Past Medical History: No Reported History History of Any Multi-Drug Resistant Organisms: None Reported Past Surgical History: Tonsillectomy Past Anesthesia/Blood Transfusion Reactions: No Reported Reaction Past Psychological History: No Psychological Hx Reported Additional Psychological History / Comment(s): Pt resides with his spouse and 3 children. He is independent. Smoking Status: Former smoker Past Alcohol Use History: None Reported Additional Past Alcohol Use History / Comment(s): Pt started smoking in 2005 and quit in 2007 Past Drug Use History: None Reported - Past Family History Father Family Medical History: Cancer Additional Family Medical History / Comment(s): Father has a pacemaker and melanoma. Denies any family history of autoimmune conditions. Mother Family Medical History: Diabetes Mellitus Medications and Allergies Home Medications Medication Instructions Recorded Confirmed Type Cetirizine HCl [Zyrtec] 10 mg PO DAILY PRN 05/30/16 11/15/16 History Cholecalciferol [Vitamin D3] 1,000 unit PO DAILY 11/15/16 11/15/16 History Ibuprofen [Motrin] 800 mg PO Q6HR PRN 11/15/16 11/15/16 History Allergies Allergy/AdvReac Type Severity Reaction Status Date / Time No Known Allergies Allergy Verified 11/15/16 11:03 Physical Exam Vitals: Vital Signs Temp Pulse Pulse Pulse Pulse Pulse Resp 11/22/16 16:14 20 11/22/16 16:11 82 11/22/16 16:00 82 11/22/16 14:00 98.6 F 83 20 11/22/16 13:03 98.1 F 11/22/16 11:47 84 18 11/22/16 11:33 80 18 11/22/16 08:38 80 18 11/22/16 08:28 71 16 11/22/16 08:00 91 72 69 18 11/22/16 07:00 98.3 F 69 17 11/22/16 00:47 98.8 F 11/22/16 00:00 93 11/21/16 22:56 100.2 F H 93 16 11/21/16 19:56 84 11/21/16 19:45 80 BP Pulse Ox 11/22/16 16:14 11/22/16 16:11 11/22/16 16:00 11/22/16 14:00 165/85 96 11/22/16 13:03 11/22/16 11:47 11/22/16 11:33 11/22/16 08:38 11/22/16 08:28 98 11/22/16 08:00 11/22/16 07:00 164/93 95 11/22/16 00:47 11/22/16 00:00 11/21/16 22:56 148/87 96 11/21/16 19:56 11/21/16 19:45 Intake and Output 11/22/16 11/22/16 11/22/16 06:59 14:59 22:59 Intake Total 100 Balance 100 Intake: Oral 100 Other: Voiding Method Toilet Toilet Toilet # Voids 1 3 3 Weight 106.594 kg Patient Weight 11/23/16 06:59 Weight 106.594 kg Results CBC & Chem 7: 11/21/16 08:16 11/22/16 09:15 Labs: Abnormal Lab Results - Last 24 Hours (Table) 11/22/16 Range/Units 09:15 Glucose 108 H (74-99) mg/dL Calcium 8.3 L (8.4-10.2) mg/dL Microbiology - Last 24 Hours (Table) 11/20/16 13:28 Blood Culture - Preliminary Blood No Growth after 48 hours 11/20/16 13:12 Blood Culture - Preliminary Blood No Growth after 48 hours 11/16/16 20:22 Blood Culture - Preliminary Blood No Growth after 120 hours 11/16/16 20:04 Blood Culture - Preliminary Blood No Growth after 120 hours 11/20/16 15:07 Urine Culture - Final Urine,Voided 11/15/16 14:37 Blood Culture - Final Blood No Growth after 144 hours
--- NOTE | 2016-11-25 06:22 | DS ---
DATE OF ADMISSION: 11/15/2016 DATE OF DISCHARGE: 11/22/2016 DISCHARGE DIAGNOSES: 1. Acute cellulitis of the left upper chest infection into the neck, improved now. 2. Sepsis secondary to cellulitis. 3. Acute diarrhea, likely viral gastroenteritis that is resolved now. 4. Nonoliguric acute kidney injury improved to 0.95 creatinine. 5. Lactic acidosis on admission, improved. 6. Acute hypoxic respiratory failure secondary to chest wall infection on admission. 7. Right upper lobe mass. 8. Diffuse lymphadenopathy. 9. Hypokalemia. 10. History of nephrolithiasis. 11. Left kidney complex cyst. HOSPITAL COURSE: A 31-year-old male was admitted to the hospital with fever and chills and watery diarrhea multiple times. Patient came to the hospital with ongoing evaluation was informed this was likely viral gastroenteritis and was discharged home. Over the last few days, the patient continued to have chills and has been significantly weak and oral intake has been decreased. The rapid flu test in the ER was negative. Patient is also complaining of rash on his left side of the chest associated with significant tenderness and pain in his shoulder. Patient was treated with course of antibiotics for cellulitis. The patient was seen by ID. Patient also had ( ) seen by the patient. CT of the chest was done shows some cellulitis without any concern for abscess. Patient also had hepatosplenomegaly ( ) on CT scan. Patient also had left renal cyst complex and recommended follow with ( ) as an outpatient. Otherwise, the patient was found to have acute kidney injury most likely prerenal which is improved now. Patient was seen by nephrology as well. Patient continued to improve with IV antibiotics and symptomatic management. Diarrhea has resolved. No fever or chills. No nausea or vomiting. Patient was discharged home with final antibiotic recommendations from ID, will have IV infusions daily in the hospital. Otherwise, patient is stable for discharge home and recommended to follow with primary care physician and ( ) as well. Patient was also given burst steroids for lymphadenopathy and results of ( ) workup are negative. Patient is stable for discharge home. DISCHARGE PHYSICAL EXAMINATION: A 31-year-old male lying on the bed, awake, alert, oriented x3. Appears to be in no apparent distress. VITALS: Blood pressure is 165/85, pulse is 83, respirations 20, temperature afebrile, pulse ox 96% on room air. LABORATORY DATA: Reviewed. Blood cultures and urine cultures are negative. Hepatitis panel is negative. C-reactive level was 544 on admission it came down to 73 now. Lyme disease titers and c-ANCA p-ANCA and KAVON negative. Discharge physical examination done. Discharge medications include: 1. Zyrtec 10 mg p.o. daily p.r.n. for allergies. 2. Vitamin D3, 1000 units p.o. daily. 3. Albuterol inhalation 2.5 mg inhalation RT q.4 hourly p.r.n. for short of breath. 4. Ceftaroline 600 mg IV piggyback q.12 hours via PICC line. 5. [place] 5/325 one tablet q.6 hourly p.r.n. for pain. Patient will be discharged home and follow with Dr. Brice in one week and home with self-care. Follow with the hospital clinic for IV infusion daily. Time taken more than 35 minutes, including 18 minutes counseling the patient and coordinating care.
[2016-11-30 16:02] LABS: Mis test requested (Non-blood) FECAL LACTOFERRIN
== END 2016-11-22 19:02 | disposition home or self-care (01) | DRG 871 ==
LOC: EC 10:15 → 4MS4W 12:17
PROVIDERS: ADMIT Internal Medicine; ATTEND Internal Medicine
PROC: 02HV33Z Insertion of Infusion Device into Superior Vena Cava, Percutaneous Approach (ICD-10-PCS; principal; 2016-11-22 14:29)
PROC: B548ZZA Ultrasonography of Superior Vena Cava, Guidance (ICD-10-PCS; 2016-11-22 14:29)
DX: A41.9 Sepsis, unspecified organism (principal); J96.01 Acute respiratory failure with hypoxia; E87.2 Acidosis; N17.9 Acute kidney failure, unspecified; L03.313 Cellulitis of chest wall; A26.0 Cutaneous erysipeloid; R16.2 Hepatomegaly with splenomegaly, not elsewhere classified; N28.1 Cyst of kidney, acquired; E86.0 Dehydration; E86.1 Hypovolemia; E87.6 Hypokalemia; R31.29 Other microscopic hematuria; T39.395A Adverse effect of other nonsteroidal anti-inflammatory drugs [NSAID], initial encounter; R59.1 Generalized enlarged lymph nodes; A08.4 Viral intestinal infection, unspecified; R91.8 Other nonspecific abnormal finding of lung field; Z87.891 Personal history of nicotine dependence; Z87.442 Personal history of urinary calculi; Z79.899 Other long term (current) drug therapy
CPT/HCPCS: 36415; 36569; 70490; 71020; 71250; 76700; 76937; 77001; 80048; 80053; 80074; 81001; 81003; 82550; 82553; 82570; 82728; 83036; 83605; 83630; 83735; 84132; 84156; 84300; 85025; 85610; 85652; 85730; 86038; 86060; 86140; 86255; 86431; 86618; 87040; 87045; 87046; 87086; 87205; 87324; 87502; 89055; 93005; 94640; 94760; 96365; 99285

== ENCOUNTER → 2016-12-01 | Outpatient (CLI) | payer OTHER ==
--- NOTE | 2016-12-01 16:48 | CT ---
EXAMINATION TYPE: CT chest wo con DATE OF EXAM: 12/01/2016 2:16 PM COMPARISON: NONE HISTORY: Lt chest wall cellulitis CT DLP: 392.1 mGycm, Automated exposure control for dose reduction was used. CONTRAST: Performed injected with 0 mL of Omnipaque 300. TECHNIQUE: Axial images were obtained at 5 mm thick sections. Reconstructed images are reviewed on t [employer] computer in the coronal plane. FINDINGS: Portion of the thyroid visualized is normal. There is increased soft tissue inflammatory-type change along the anterior left chest wall adjacent t o the pectoralis muscle. This can be compatible with the patient's cellulitis. Soft tissues otherwise appear unremarkable. A minimal right pleural effusion is present. There is a 1.5 cm nodule within the cardiophrenic angle of the right midlung. Series 4 image 21. Scattered lymphadenopathy is through the bilateral axillary regions. Couple of pretracheal lymph node s may be present. Subcarinal lymph node is somewhat prominent at 1.1 cm. No enlarged mediastinal or hilar adenopathy is evident. The ascending aorta diameter at the level o f the main pulmonary artery is 3.4 cm. The main pulmonary artery diameter at the bifurcation is 2.7 cm. Coronary artery calcification is present. Limited CT sections are obtained through the upper abdomen. Abdomen is essentially unremarkable. IMPRESSIONS: 1. 1.5 cm right middle lobe nodule. 2. Prominent 1.1 cm subcarinal lymph node. Additional shotty lymphadenopathy is present. Some shotty lymphadenopathy is within the bilateral axillary regions. 3. Small right pleural effusion 4. Deep subcutaneous tissue cellulitis may be present along the left anterior pectoralis muscle.
== END | disposition home or self-care (01) ==
LOC: RADCTMAIN 13:56
PROVIDERS: ATTEND Internal Medicine Infectious Disease
DX: J90 Pleural effusion, not elsewhere classified (principal); L03.313 Cellulitis of chest wall; R91.1 Solitary pulmonary nodule; R59.0 Localized enlarged lymph nodes
CPT/HCPCS: 71250

== ENCOUNTER → 2016-12-16 | Outpatient (CLI) | payer OTHER ==
[2016-12-16 08:34] LABS: Anion Gap 12 mmol/L; Blood Urea Nitrogen 15 mg/dL (9-20); Calcium 9.6 mg/dL (8.4-10.2); Carbon Dioxide 27 mmol/L (22-30); Chloride 103 mmol/L (98-107); Glucose 89 mg/dL (74-99); Non-African American GFR(MDRD) >60 (>60 ml/min/1.73 sqM); Potassium 4.1 mmol/L (3.5-5.1); Sodium 142 mmol/L (137-145)
[2016-12-16 08:43] LABS: Aty Lym Flag Moderate; CH 29.2; CHCM 36.3; HCT 35.8 % (39.0-53.0); HDW 3.96; HGB 12.3 gm/dL (13.0-17.5); Hyperchromasia Slight; MCH 27.6 pg (25.0-35.0); MCHC 34.3 g/dL (31.0-37.0); MCV 80.5 fL (80.0-100.0); Mean Platelet Volume 6.1; Poikilocytosis Slight; RBC 4.45 m/uL (4.30-5.90); RDW 13.1 % (11.5-15.5); WBC 2.8 k/uL (3.8-10.6); WBC (Perox) 2.62
[2016-12-16 09:34] LABS: Add Differential Manual Differential
[2016-12-16 09:38] LABS: Nucleated Red Blood Cells 0 /100 WBC (0-0); Total Cells Counted 100
[2016-12-16 09:39] LABS: Manual Review Performed
== END | disposition home or self-care (01) ==
LOC: LABWHC1 07:47
PROVIDERS: ATTEND Internal Medicine Infectious Disease
DX: L03.313 Cellulitis of chest wall (principal)
CPT/HCPCS: 36415; 80048; 85025

== ENCOUNTER → 2016-12-20 | Outpatient (CLI) | payer OTHER ==
--- NOTE | 2016-12-21 10:08 | CT ---
EXAMINATION TYPE: CT abdomen pelvis w con DATE OF EXAM: 12/20/2016 5:35 PM COMPARISON: 06/01/2016 INDICATION: Renal cyst. DLP: 1267.30 mGycm, Automated exposure control for dose reduction was used. CONTRAST: 100 mL of Omnipaque 300. Study performed with Oral Contrast TECHNIQUE: Axial images were obtained from above the diaphragm to the pubic rami in the axial plane a t 5 mm thick sections. Reconstructed images are reviewed on the computer in the coronal plane. FINDINGS: Limited CT sections are obtained the lung bases. Very minimal right pleural effusion may be present. . CT ABDOMEN: Liver: Normal Spleen: Normal Pancreas: Normal Adrenal glands: The adrenal glands are normal. Gallbladder: Calcifications within the gallbladder. Kidneys: No masses are evident. No hydronephrosis is present. There is a 2.8 cm posterior lateral m id right renal cyst measuring 12 Hounsfield units. Delayed images were obtained through the kidneys, which remain unremarkable. Aorta: Normal Inferior vena cava: Normal. CT PELVIS: Loops of bowel within the abdomen and pelvis are normal. There are loops of bowel which are incom pletely distended or lack oral contrast limiting their evaluation. Appendix: Normal as visualized. Urinary bladder: Decompressed with limited evaluation. Genitourinary structures: Prostate is normal. Osseous structures: No suspicious lytic or sclerotic lesions. IMPRESSIONS: 1. Small right pleural effusion. 2. Cholelithiasis. 3. CT abdomen pelvis appears within normal limits
== END | disposition home or self-care (01) ==
LOC: RADCTMAIN 15:47
PROVIDERS: ATTEND Internal Medicine
DX: K80.20 Calculus of gallbladder without cholecystitis without obstruction (principal)
CPT/HCPCS: 74177; Q9967

== ENCOUNTER → 2016-12-23 | Outpatient (CLI) | payer OTHER ==
[2016-12-23 12:03] LABS: Basophils # (A) 0.1 k/uL (0-0.2); Basophils % (A) 2 %; CH 28.5; CHCM 35.9; Eosinophils % (A) 0 %; HCT 35.8 % (39.0-53.0); HDW 3.85; HGB 12.6 gm/dL (13.0-17.5); Luc # (Auto) 0.18; Luc % (Auto) 3; Lymphocytes # (A) 2.8 k/uL (1.0-4.8); Lymphocytes % (A) 43 %; MCHC 35.2 g/dL (31.0-37.0); MCV 79.5 fL (80.0-100.0); Mean Platelet Volume 6.5; Monocytes # (A) 0.5 k/uL (0-1.0); Monocytes % (A) 7 %; Neutrophils % (A) 46 %; Poikilocytosis Slight; RDW 13.3 % (11.5-15.5); WBC 6.5 k/uL (3.8-10.6); WBC (Perox) 6.35
[2016-12-23 12:34] LABS: Anion Gap 12 mmol/L; Blood Urea Nitrogen 15 mg/dL (9-20); Calcium 9.6 mg/dL (8.4-10.2); Carbon Dioxide 27 mmol/L (22-30); Chloride 104 mmol/L (98-107); Glucose 84 mg/dL (74-99); Non-African American GFR(MDRD) >60 (>60 ml/min/1.73 sqM); Potassium 3.9 mmol/L (3.5-5.1); Sodium 143 mmol/L (137-145)
[2016-12-23 13:39] LABS: Erythrocyte Sedimentation Rate 30 mm/hr (0-15)
== END | disposition home or self-care (01) ==
LOC: LABWHC1 11:35
PROVIDERS: ATTEND Internal Medicine Infectious Disease
DX: L03.90 Cellulitis, unspecified (principal)
CPT/HCPCS: 36415; 80048; 85025; 85652

== ENCOUNTER → 2017-01-28 | Outpatient (CLI) | payer OTHER ==
[2017-01-28 11:59] LABS: CH 29.1; HCT 38.4 % (39.0-53.0); HGB 13.3 gm/dL (13.0-17.5); MCH 28.1 pg (25.0-35.0); MCHC 34.7 g/dL (31.0-37.0); Mean Platelet Volume 6.4; RBC 4.74 m/uL (4.30-5.90); RDW 15.6 % (11.5-15.5); WBC 5.5 k/uL (3.8-10.6)
[2017-01-28 12:09] LABS: Bilirubin, Delta 0.2 mg/dL (0.0-0.2); Total Bilirubin 0.7 mg/dL (0.2-1.3); Total Protein 7.7 g/dL (6.3-8.2)
[2017-01-28 13:13] LABS: Erythrocyte Sedimentation Rate 16 mm/hr (0-15)
== END | disposition home or self-care (01) ==
LOC: LABWHC1 10:00
PROVIDERS: ATTEND Surgery
DX: K80.20 Calculus of gallbladder without cholecystitis without obstruction (principal); D70.9 Neutropenia, unspecified
CPT/HCPCS: 36415; 80076; 85027; 85652

== ENCOUNTER → 2017-01-28 | Outpatient (CLI) | payer OTHER ==
--- NOTE | 2017-01-30 10:23 | PE ---
Nuclear medicine PET/CT HISTORY: Solitary pulmonary nodule Correlation to CT chest 12/01/2016, chest x-ray 01/16/2017 Patient received 13.9 mCi F-18 FDG intravenously. Delayed scanning performed from the skull base thro ugh the proximal thighs. Localization and attenuation correction CT scan was performed. Neck and chest: There is no adenopathy. Right middle lobe lung nodule shows a suggestion of central c alcification and is stable measuring approximately 14 mm in size. No suspicious hypermetabolic uptake . Abdomen pelvis: There is no pneumoperitoneum. No suspicious hypermetabolic uptake. No free fluid or r etroperitoneal adenopathy. No adrenal mass. Gallstone present within the gallbladder. Low-attenuation within the liver likely due to fatty infiltration. Cortical cyst associated with the right kidney me asures approximately 2.7 cm in size. IMPRESSION: No suspicious hypermetabolic uptake. Cholelithiasis.
== END | disposition home or self-care (01) ==
LOC: RADPETMAIN 10:15
PROVIDERS: ATTEND Internal Medicine Critical Care Medicine
DX: R91.1 Solitary pulmonary nodule (principal); K80.20 Calculus of gallbladder without cholecystitis without obstruction
CPT/HCPCS: 78816; A9552

== ENCOUNTER 2017-02-06 05:54 | Day surgery (SDC) | payer OTHER ==
[2017-02-02 16:13] VITALS: BMI 34.4
[~2017-02-06 05:54] MED LIST: HEPARIN SODIUM,PORCINE 5,000 UNIT/ML 1 ML VIAL SQ ONE; Pre Op ABX Message 1 EACH MISC MISCELLANE ONE
[2017-02-06] MEDS ORDERED: DEXAMETHASONE SOD PHOSPHATE 10 MG/ML 1 ML VIAL IV ONE (06:02)
[2017-02-06] MEDS ORDERED: LACTATED RINGERS 1,000 ML IV SCH (06:02)
[2017-02-06] MEDS ORDERED: MIDAZOLAM 2 MG/2 ML VIAL IV PRN (06:02)
[2017-02-06] MEDS ORDERED: ONDANSETRON 4 MG/2 ML VIAL IVP ONE (06:02)
[2017-02-06] MEDS ORDERED: LIDOCAINE 1% 20 ML VIAL (10MG/ML) FOR IV START INTRADERMA ONE (06:40)
[2017-02-06] MEDS ORDERED: LIDOCAINE 1% INJ 10MG/ML (20 ML MDV) ONE (07:06)
[2017-02-06] MEDS ORDERED: fentaNYL (PF) 50 MCG/ML 2 ML AMP ONE (07:06)
[2017-02-06] MEDS ORDERED: MIDAZOLAM 2 MG/2 ML VIAL ONE (07:06)
[2017-02-06] MEDS ORDERED: GLYCOPYRROLATE 0.2 MG/ML 2 ML VIAL ONE (07:06)
[2017-02-06] MEDS ORDERED: SUCCINYLCHOLINE CHLORIDE 100 MG/5 ML SYR IV ONE (07:06)
[2017-02-06] MEDS ORDERED: ROCURONIUM BROMIDE 10 MG/ML 10 ML VIAL IV ONE (07:06)
[2017-02-06] MEDS ORDERED: PROPOFOL 10 MG/ML 20 ML VIAL IV ONE (07:06)
[2017-02-06] MEDS ORDERED: HYDROmorphone (PF) 1 MG/ML ONE (07:06)
[2017-02-06] MEDS ORDERED: NEOSTIGMINE 1 MG/ML 10 ML VIAL ONE (07:06)
[2017-02-06] MEDS ORDERED: SODIUM CHLORIDE 0.9% 50 ML with ceFAZolin 2,000 MG IV ONE ×2 (07:24)
[2017-02-06] MEDS ORDERED: BUPIVACAINE (PF) 0.5% 30 ML VIAL SQ ONE (07:28)
[2017-02-06] MEDS ORDERED: BUPIVACAIN-EPI 0.25%-1:200,000 30 ML VIAL SQ ONE (08:28)
--- NOTE | 2017-02-06 08:45 | P.OP ---
Date of Procedure: 02/06/17 Preoperative Diagnosis: Cholelithiasis chronic cholecystitis Postoperative Diagnosis: Cholelithiasis chronic cholecystitis Procedure(s) Performed: Robotic-assisted the laparoscopic cholecystectomy Implants: Anesthesia: ELIDIA Surgeon: Luciano Anguiano Estimated Blood Loss (ml): 10 Pathology: other (Gallbladder) Condition: stable Disposition: same day Indications for Procedure: The patient is a 31-year-old white male with symptomatic gallstones confirmed on computed tomography scan. Robotic-assisted the laparoscopic cholecystectomy was recommended and informed consent was obtained procedure having being explained to him including potential complication particular bleeding infection surrounding injury pain to proceed Operative Findings: Cholelithiasis chronic cholecystitis Description of Procedure: After induction of general endotracheal anesthesia trocar sites were marked with a marking pen adjacent to the umbilicus and 3 subcostally one to the left of the midline and then the other 2 on the right side in line with the each other. The Veress needle was was inserted through the periumbilical site with a satisfactory saline drop test after local anesthetic was infiltrated at all 3 sites. The peritoneal cavity was inflated with carbon dioxide to pressure approximately 15 mmHg. The needle was replaced with a 12 mm trocar was inserted. The robot was then docked onto all 4 trochars. The gallbladder was retracted. Area of the neck carefully dissected. Cystic duct identified school he denies its junction with the gallbladder common duct well visualized. The cystic duct was then triply clipped and divided as was the cystic artery and a posterior branch. The gallbladder was then dissected the from its bed and removed through the periumbilical port site in an Endo Catch bag The umbilical trocar site was then closed the 0 Vicryl stitch. Remaining trochars were then removed under direct vision CO2 evacuated. Skin incisions closed with the interrupted 4-0 Monocryl and Dermabond. Dressings were applied. All counts were correct. Estimated blood loss less than 10 MLS. Patient was transferred to the recovery room in good and stable condition. The patient was discharged home remaining stable. May resume home meds. Local 5 mg 1 every 4-6 hours when necessary for pain. An appointment to the office in about a week. No heavy lifting or straining for a week. Low-fat diet. Encouraged to ambulate. Removed the dressings tomorrow and may shower from tomorrow. Plan - Discharge Summary New Discharge Prescriptions: No Action Cetirizine HCl [Zyrtec] 10 mg PO DAILY PRN PRN Reason: Allergy Symptoms Cholecalciferol [Vitamin D3] 2,000 unit PO DAILY Lisinopril [Zestril] 10 mg PO DAILY Albuterol Sulfate [Ventolin Hfa] 1 - 2 puff INHALATION Q6H PRN PRN Reason: Shortness Of Breath Discharge Medication List Cetirizine HCl [Zyrtec] 10 mg PO DAILY PRN 05/30/16 [History] Cholecalciferol [Vitamin D3] 2,000 unit PO DAILY 11/15/16 [History] Lisinopril [Zestril] 10 mg PO DAILY 12/08/16 [History] Albuterol Sulfate [Ventolin Hfa] 1 - 2 puff INHALATION Q6H PRN 02/02/17 [History ]
[2017-02-06 08:53] VITALS: TEMP 98
[2017-02-06] MEDS: HYDROmorphone 1 MG/ML 1 ML SYRINGE IVP PRN ×3 (09:11→09:52)
[2017-02-06] MEDS ORDERED: LACTATED RINGERS 1,000 ML IV ONE (09:35)
[2017-02-06] MEDS ORDERED: HYDROcodone/APAP 5-325MG 1 EACH TAB PO ONE ×2 (10:28→10:38)
[2017-02-06 11:12] VITALS: RESP 16
[2017-02-06 13:37] VITALS: BP 114/66; PULSE 66
== END 2017-02-06 14:01 | disposition home or self-care (01) ==
LOC: OR 05:54
PROVIDERS: ATTEND Surgery
DX: K80.10 Calculus of gallbladder with chronic cholecystitis without obstruction (principal); I10 Essential (primary) hypertension; J45.909 Unspecified asthma, uncomplicated; G43.909 Migraine, unspecified, not intractable, without status migrainosus; Z79.899 Other long term (current) drug therapy
CPT/HCPCS: 47562; S2900; 88304

== ENCOUNTER → 2017-03-06 | Outpatient (CLI) | payer OTHER ==
[2017-03-06 16:36] LABS: Appearance,Urine Clear (Clear); Bilirubin,Urine Negative (Negative); Glucose,Urine (UA) Negative (Negative); Ketones,Urine Negative (Negative); Leukocyte Esterase,Urine Negative (Negative); Nitrite,Urine Negative (Negative); PH, Urine 5.5 (5.0-8.0); Protein,Urine Trace (Negative); Specific Gravity,Urine 1.027 (1.001-1.035); UA Billing (MACRO vs. MICRO) CHEM; Urobilinogen,Urine <2.0 mg/dL (<2.0)
[2017-03-06 16:48] LABS: Anion Gap 13 mmol/L; Blood Urea Nitrogen 21 mg/dL (9-20); Calcium 9.4 mg/dL (8.4-10.2); Carbon Dioxide 23 mmol/L (22-30); Chloride 103 mmol/L (98-107); Glucose 88 mg/dL (74-99); Non-African American GFR(MDRD) >60 (>60 ml/min/1.73 sqM); Potassium 3.9 mmol/L (3.5-5.1); Sodium 139 mmol/L (137-145)
== END | disposition home or self-care (01) ==
LOC: LABWHC1 16:09
PROVIDERS: ATTEND Nurse Practitioner Family
DX: N17.9 Acute kidney failure, unspecified (principal)
CPT/HCPCS: 36415; 80048; 81003; 82570; 84156

== ENCOUNTER → 2017-10-07 | Outpatient (CLI) | payer OTHER ==
[2017-10-07 10:13] LABS: Appearance,Urine Clear (Clear); Bilirubin,Urine Negative (Negative); Blood,Urine Negative (Negative); Color,Urine Yellow; Glucose,Urine (UA) Negative (Negative); Ketones,Urine Negative (Negative); Leukocyte Esterase,Urine Negative (Negative); Protein,Urine Negative (Negative); Specific Gravity,Urine 1.019 (1.001-1.035); Urobilinogen,Urine <2.0 mg/dL (<2.0)
[2017-10-07 10:15] LABS: Basophils % (A) 1 %; Eosinophils # (A) 0.4 k/uL (0-0.7); Eosinophils % (A) 5 %; HCT 40.8 % (39.0-53.0); HGB 14.1 gm/dL (13.0-17.5); Lymphocytes # (A) 2.8 k/uL (1.0-4.8); Lymphocytes % (A) 35 %; MCH 29.3 pg (25.0-35.0); MCHC 34.6 g/dL (31.0-37.0); MCV 84.6 fL (80.0-100.0); Mean Platelet Volume 6.5; Monocytes # (A) 0.5 k/uL (0-1.0); Monocytes % (A) 6 %; Neutrophils # (A) 4.1 k/uL (1.3-7.7); Neutrophils % (A) 51 %; Platelet Count 277 k/uL (150-450); RBC 4.82 m/uL (4.30-5.90); RDW 13.7 % (11.5-15.5); WBC 8.1 k/uL (3.8-10.6)
[2017-10-07 10:22] LABS: Creatinine,Urine Random 149.8 mg/dL
[2017-10-07 10:30] LABS: ALT 42 U/L (21-72); AST 19 U/L (17-59); Albumin 4.3 g/dL (3.5-5.0); Alkaline Phosphatase 36 U/L (38-126); Anion Gap 10 mmol/L; Blood Urea Nitrogen 17 mg/dL (9-20); Calcium 9.5 mg/dL (8.4-10.2); Carbon Dioxide 26 mmol/L (22-30); Chloride 106 mmol/L (98-107); Cholesterol 185 mg/dL (<200); Glucose 76 mg/dL (74-99); HDL Cholesterol 49 mg/dL (40-60); LDL Cholesterol,Calculated 97 mg/dL (0-99); Potassium 4.4 mmol/L (3.5-5.1); Sodium 142 mmol/L (137-145); Total Bilirubin 0.5 mg/dL (0.2-1.3); Total Protein 7.3 g/dL (6.3-8.2); Triglycerides 195 mg/dL (<150)
[2017-10-07 10:45] LABS: T4, Free (Free Thyroxine) 1.24 ng/dL (0.78-2.19)
== END | disposition home or self-care (01) ==
LOC: LABWHC1 09:15
PROVIDERS: ATTEND Nurse Practitioner Family
DX: R80.9 Proteinuria, unspecified (principal); N17.9 Acute kidney failure, unspecified; I10 Essential (primary) hypertension; Z13.228 Encounter for screening for other metabolic disorders; Z13.220 Encounter for screening for lipoid disorders; Z13.29 Encounter for screening for other suspected endocrine disorder
CPT/HCPCS: 36415; 80053; 80061; 81003; 82570; 84156; 84439; 84443; 85025